=== PATIENT | male | born 1950 | race Caucasian/White ===

== ENCOUNTER 2022-04-15 12:50 | Outpatient (CLI) | payer MEDICARE, BC, SELFPAY ==
--- NOTE | 2022-04-15 13:00 | MR_ITS ---
[facility] [address] [facility] [address] Phone:?[phone] Fax:?[phone] Referring Physician Information: Antwon Leija M.D. [address] [place] [address] Phone:?[phone] Fax:?[phone] Patient:Rosetta Ramírez D.O.B:?1950 Sex:?Male Phone:?[phone] [facility] MRN:?[id number] Exam Date:?04/15/2022 ? EXAM: MRI OF THE RIGHT KNEE CLINICAL INFORMATION: The patient is a 71-year-old with right knee pain. Evaluate for medial meniscal tear. PRIOR SURGERY: None reported. COMPARISON STUDIES: There are no prior studies available for comparison. TECHNICAL INFORMATION: Imaging was performed on a high-field, 1.5 Jaki MR scanner. Axial proton-density and fat-suppressed T2 imaging of the right knee was performed in addition to coronal proton-density and coronal STIR imaging. Sagittal proton-density and sagittal fat-suppressed proton-density imaging was also performed. FINDINGS: Articular/Extraarticular collections: Effusion: Mild to moderate. Popliteal cyst: Small, seen on axial series 4 image 13 and on sagittal series 6 image 23. Loose bodies: No well-defined intra-articular loose bodies are present. Subcutaneous and extraarticular soft tissues: Within normal limits. Cortical irregularity and subcortical cystic changes can be seen involving the medial femoral condyle on coronal series 8 image 19. The findings are in keeping with the chondromalacia and chondral thinning described below. No other bony abnormalities about the knee are present. No evidence for fracture, contusion, or stress injury can be seen. Osseous structures: No evidence for marrow edema or cortical injury. No evidence for fracture or stress injury. No evidence for destructive bony lesion. Ligamentous structures: ACL: Intact and normal in appearance. PCL: Intact and normal in appearance. MCL: Intact and normal in appearance. LCL: Intact and normal in appearance. Posterolateral corner: Intact and normal in appearance. Posteromedial corner: No posteromedial corner soft tissue injury. Semimembranosus and pes anserine tendons demonstrate no tendinopathy or associated bursitis. Extensor mechanism/Patellar retinacular structures: Patellar tendon: Intact, without tendinopathy. Quadriceps tendon: Intact, without tendinopathy. Retinacula: The medial and lateral retinacula are intact. The medial patellofemoral ligament is intact. Medial compartment: Medial meniscus: The medial meniscus is abnormal in appearance. There is broad- based, complex tearing and fraying of the middle and posterior portions of the medial meniscus with a prominent horizontal component of tearing involving the posterior horn on sagittal series 6 image 22. The medial meniscal tearing measures approximately 28 mm in anteroposterior dimension and 25 mm in mediolateral dimension. There is extension of the tearing to the meniscal attachment. No definite evidence for well-defined parameniscal cyst formation is seen. The anterior horn of the medial meniscus appears intact. Medial femoral condyle: Grade II to III chondromalacia can be seen along the articular surfaces of the medial femoral condyle. Mild underlying bony changes are seen. Medial tibial plateau: Grade II chondromalacia can be seen along the weightbearing surfaces of the medial tibial plateau. Lateral compartment: Lateral meniscus: No evidence for lateral meniscal tearing is present. No evidence for parameniscal cyst formation can be seen. Lateral femoral condyle: No chondromalacia, chondral defect, or osteochondral abnormality. Lateral tibial plateau: Grade II chondromalacia can be seen along the posterior articular surfaces of the lateral tibial plateau. No full-thickness chondral defects are seen. Patellofemoral compartment: Patella: No chondromalacia, chondral defect, or osteochondral abnormality. Trochlea: No chondromalacia, chondral defect, or osteochondral abnormality. Neurovascular: No definite neurovascular abnormalities are seen. CONCLUSION: 1. Broad-based tearing of the middle and posterior portions of the medial meniscus. No lateral meniscal tearing is seen. 2. 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 3. The cruciate and collateral ligaments appear intact. 4. No acute bony abnormalities are seen. 5. Mild to moderate knee joint effusion and small popliteal cyst. [facility] Electronically signed on 04/15/2022 4:35:00 PM by Demario Woo M.D.
== END 2022-04-15 12:51 | disposition home or self-care (01) ==
PROVIDERS: Visit Provider Orthopaedic Surgery
DX: M25.561 Pain in right knee (principal); M23.221 Derangement of posterior horn of medial meniscus due to old tear or injury, right knee; M94.261 Chondromalacia, right knee; M25.461 Effusion, right knee; M71.21 Synovial cyst of popliteal space [Baker], right knee
CPT/HCPCS: 73721

== ENCOUNTER 2022-07-03 09:08 | Day surgery (SDC) | payer MEDICARE, BC, SELFPAY ==
[2022-07-03] VITALS (23 sets, daily range): BP systolic 86–184; BP diastolic 59–96; PULSE 58–68; RESP 16; TEMP 36.6; O2SAT 93–99; BMI 31.2
[2022-07-03] MEDS: SODIUM CHLORIDE 0.9 % (FLUSH) 10 ML SYRINGE IVF (10:10)
[2022-07-03] MEDS: LACTATED RINGERS 1000 ML 1,000 ML 100 ML IV (10:10)
[2022-07-03] MEDS: CEFAZOLIN 2 GM INJ IVP (11:20)
[2022-07-03] MEDS: BUPIVACAINE 0.25% 30 ML INJECTION (11:57)
--- NOTE | 2022-07-03 12:06 | PM.ORPRC ---
Procedure Note Date of procedure: 07/03/22 Procedure: SURGEON: Antwon Leija MD EMERGENCY MANAGEMENT PROGRAM SPECIALIST: LUCY Johansen PREOPERATIVE DIAGNOSIS: Right knee medial meniscus tear POSTOPERATIVE DIAGNOSIS: Right knee medial meniscus tear NAME OF OPERATION: Right knee arthroscopic partial medial meniscectomy ANESTHESIA: Spinal ESTIMATED BLOOD LOSS: 0 mL COMPLICATIONS: None SPECIMENS: None DRAINS: None PREOPERATIVE ANTIBIOTICS: Ancef 2 gram INDICATIONS: The patient is a 72-year-old with a history of right knee medial pain. MRI scan is consistent with a medial meniscus tear. Despite appropriate nonoperative management, including activity modification, antiinflammatories, [id number] pain medication, bracing, physical therapy, and injections they continue to have pain and disability. Operative intervention was offered. The risks, benefits and expected outcomes were discussed in detail. These included but were not limited to: Infection, bleeding, injury to blood vessel or nerve, venous thromboembolism. All questions were answered to their satisfaction. PROCEDURE: Spinal anesthesia was administered. The patient was placed supine on the operating room table. The right lower extremity was prepped and draped in the usual sterile fashion. The limb was exsanguinated with the George bandage. The pneumatic tourniquet was inflated to 300 mmHg. A standard anterolateral portal was established. The arthroscope was introduced. The working portal was established anteromedially. Diagnostic arthroscopy was performed with findings as follows: The suprapatellar pouch is normal. Articular surface on the patella is normal. Articular surface on the trochlea shows a small patch of grade 3 change, distally. The medial gutter is normal. The medial compartment shows a focal area of grade 3 change on the central, weight-bearing portion of the medial femoral condyle, normal articular cartilage on the medial tibial plateau. The medial meniscus has a complex degenerative tear of the posterior horn, into the midbody. This primarily consists of vertical longitudinal tearing in the white-white zone and undersurface horizontal cleavage tearing. The notch shows the ACL to be intact. The lateral compartment shows normal articular cartilage on the lateral femoral condyle and lateral tibial plateau. The lateral meniscus is normal. The lateral gutter is normal. The posterior horn of the medial meniscus was debrided to a stable base using a combination of baskets and shaver through both portals. Unstable chondral flaps on the medial femoral condyle were debrided with the shaver through both portals, taken to a stable base. Arthroscopic instruments were removed, the portal sites were Steri-Stripped closed, the knee was infiltrated with 30 mL of 0.25% Marcaine without epinephrine. A dry dressing was applied, the tourniquet was released. Sponge and needle counts were correct x 2. The patient tolerated the procedure well. There were no apparent complications. They were carefully transferred to the hospital bed and taken to the postanesthesia care unit in satisfactory condition. PLAN: The patient will be discharged to home. They may weightbear as tolerates. Range of motion will be unrestricted. They will follow up in the office next week for a wound check.
--- NOTE | 2022-07-03 12:07 | W.ANESCHARGE ---
Anesthesia Charges Start Date/Time Anesthesia Start Date: 07/03/22 Anesthesia Start Time: 11:13 Stop Date/Time Anesthesia Stop Date: 07/03/22 Anesthesia Stop Time: 12:08 Summary Emergency: No Extremes of Age: Over 72-CPT [address]
== END 2022-07-03 14:20 | disposition home or self-care (01) ==
LOC: OR 09:10
PROVIDERS: Visit Provider Orthopaedic Surgery
PROC: (CPT 29870; principal; 2022-07-03 10:30)
DX: M23.221 Derangement of posterior horn of medial meniscus due to old tear or injury, right knee (principal)
CPT/HCPCS: 29881; 01400; 82962; 99100; J0690; J2400; J2704; J3010; J3490; J7120

== ENCOUNTER 2023-07-01 18:39 | Outpatient (CLI) | payer MEDICARE, BC, SELFPAY ==
--- NOTE | 2023-07-01 19:00 | MR_ITS ---
[address] [address] Phone:?[phone] Fax:?[phone] Referring Physician Information: Antwon Leija M.D. [address] [facility] [address] Phone:?[phone] Fax:?[phone] Patient:Rosetta Ramírez D.O.B:?1950 Sex:?Male Phone:? [facility] MRN:?[id number] Exam Date:?07/01/2023 EXAM: MRI of the LEFT SHOULDER, without contrast CLINICAL: Left shoulder pain. Evaluate for rotator cuff tear. COMPARISONS: None available. TECHNICAL: Multiplanar multisequence MRI of the left shoulder was obtained. SEDATION: None. CONTRAST: None. FINDINGS: Evaluation of the obtained sequences is somewhat limited by artifact. Rotator cuff: Supraspinatus/Infraspinatus: There is high-grade near full-thickness to full- thickness tearing involving the insertional fibers of the distal supraspinatus tendon seen on coronal series 4 images 10-12 superimposed upon moderate tendinosis. No significant retraction of torn tendon fibers. There is mild tendinosis and mild partial interstitial tearing of the infraspinatus tendon. No significant fatty atrophy of the muscle bellies. Teres minor: No tendinosis, tear or atrophy. Subscapularis: Minimal partial interstitial insertional tearing of the distal tendon. No significant fatty atrophy of the muscle belly. Bursae: Subacromial-subdeltoid: Minimal bursal edema. Subcoracoid: No significant bursal fluid. Coracoacromial arch: Acromion morphology: Type II. No os acromiale. Acromiohumeral space: Within normal limits. Coracohumeral space: Within normal limits. Biceps tendon, long head: Evaluation of the tendon is relatively limited by artifact. Suspect mild to moderate tendinosis of the intra-articular tendon without evidence of tendon disruption or significant displacement as visualized. Glenohumeral joint: Physiologic volume of joint fluid. Articular cartilage: No significant chondral loss. Capsule: No convincing evidence of capsular thickening or injury. Labrum: No discrete labral tear identified on this nonarthrogram exam. No perilabral cyst identified. Bones: No suspicious marrow signal alteration, fracture or dislocation. Acromioclavicular joint: Advanced changes of arthrosis with inferior hypertrophic change mildly encroaching upon the underlying supraspinatus. No AC joint widening. IMPRESSION: 1. High-grade near full-thickness to full-thickness tearing involving the insertional fibers of the distal supraspinatus tendon superimposed upon moderate tendinosis. No significant tendon retraction at this time. 2. Mild tendinosis/partial interstitial tearing of the distal infraspinatus tendon. Minimal partial interstitial insertional tearing of the distal subscapularis tendon. 3. 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 4. Suspect mild to moderate tendinosis of the intra-articular long head biceps tendon. JCZ Electronically signed on 07/02/2023 10:20:00 AM by Alfonso Martinez D.O.
== END 2023-07-01 18:40 | disposition home or self-care (01) ==
LOC: MRI 18:40
PROVIDERS: Visit Provider Orthopaedic Surgery
DX: M25.512 Pain in left shoulder (principal); M75.102 Unspecified rotator cuff tear or rupture of left shoulder, not specified as traumatic; M19.012 Primary osteoarthritis, left shoulder
CPT/HCPCS: 73221

== ENCOUNTER 2023-12-10 06:50 | Day surgery (SDC) | payer MEDICARE, BC, SELFPAY ==
[2023-12-10] VITALS (15 sets, daily range): BP systolic 127–164; BP diastolic 73–93; PULSE 58–80; RESP 12–18; TEMP 35.8–36.4; O2SAT 92–98; BMI 31.7
--- OUTSIDE RECORDS SUMMARY | 2023-12-10 06:52 | XMS_ITS | Encounter Summary ---
Author Name Department of Vetera Affairs Organization Department of Veter[facility] Affairs Address [address] [place] [address] Support Name Relationship Address Phone KIRSTEN HOLLY Next of Kin [address] [place] [phone] KIRSTEN HOLLY Emergency Contact [address] [place] [phone] Insurance Providers: All historical and current Section Date Range: From patient's date of to the date document was created. This section includes the names of all active insurance providers for the patient. Insurance Provider Type of Coverage Plan Name Start of Policy Coverage End of Policy Coverage Group Number Member ID Insurance Provider's Telephone Number Policy Ruiz's Name Patient's Relationship to Policy Ruiz [facility] (WNR) MEDICARE ADVANTAGE [facility] (WNR) Apr 26, 2017 [id number] [phone] JUAN ANTONIO HOLLY PATIENT Selected Encounter This section includes the information on record at [place] for the Encounter. Date/Time Encounter Type Encounter Description Reason Provider Source Jul 28, 2023 09:15 AM OFFICE O/P EST LOW 20 MIN PRIMARY CARE/MEDICINE ICD-10-CM E11.9 Type 2 diabetes mellitus without complications WILLIAM العلي Maya Encounter Template Text not used by [place] Assessments - Encounter Diagnoses This section includes the primary and secondary diagnoses documented for the Encounter. Date/Time Primary/Secondary Diagnosis Diagnosis Name Provider Source Jul 30, 2023 10:15 AM PRIMARY Type 2 diabetes mellitus without complications WILLIAM العلي [facility] Jul 30, 2023 10:15 AM SECONDARY Encounter for immunization GABE MARTINEZ [facility] Jul 30, 2023 10:15 AM SECONDARY Hyperlipidemia, unspecified WILLIAM العلي [facility] Jul 30, 2023 10:15 AM SECONDARY Male erectile dysfunction, unspecified WILLIAM العلي [facility] Plan of Treatment: Future Appointments (+ 6 months) and Future Tests (+/- 45 days) The Plan of Treatment section includes future care activities for the patient [facility] [facility]. This section includes future appointments and future orders which are active, pending or scheduled. Future Appointments This section includes appointments that were scheduled to occur 6 months from the date of the Encounter, up to a maximum of 20 appointments. The data comes from all [place] treatment facilities. Appointment Date/Time Appointment Type Appointme nt Facility Name December 01, 2023 10:20 AM AMBULATORY - SURGERY [facility] Lab Results: +/- 30 days of the encounter This section includes the Chemistry and Hematology Lab Results on record with [place] for the patient. Radiology Reports and Pathology Reports are provided separately, in subsequent sections. Lab Results This section contains the Chemistry/Hematology Results that were resulted 30 days before or 30 daysafter the date of the Encounter. Date/Time Source Result Type Result - Unit Interpretation Reference Range Comment Jul 28, 2023 08:13 AM [facility] HEMOGLOBIN A1C Specimen Type: BLOOD Comment: Values obtained from A1C measurements can vary. For typical A1C assays, a reported value of 7.0 could actually be between 6.7 and 7.3 if measured by a reference method. A reported value of 9.0 could actually be between 8.7 and 9.3. Ref: http://www.ngs p.org/CAPdata. asp Ordering Provider: WILLIAM العلي Report Released Date/Time: Jul 29, 2022 09:02 AM Reporting Lab: [facility] [id number] Performing Lab: [facility] [id number] HEMOGLOBIN A1C 6.6 H 4.0-6.0 Jul 28, 2023 08:13 AM [facility] LIPID PANEL,NON-FASTING Specimen Type: PLASMA Comment: Elevated triglyceride result from a non-fasting specimen should be interpreted with caution. A fasting panel is recommended for accurate triglycerides when trigs are >200 from a non-fasting specimen. Ordering Provider: WILLIAM العلي Report Released Date/Time: Jul 29, 2022 09:02 AM Reporting Lab: [facility] [id number] Performing Lab: [facility] [id number] CHOLESTEROL 150 <199 .HDL 45 >40 LDL CALCULATION 57 <99 VLDL CALCULATION 48 H <29 NON HDL CHOLESTEROL 105 <129 TRIG(NON FASTING) 242 H <149 Jul 28, 2023 08:13 AM [facility] COMPREHENSIVE METABOLIC PANEL+MG Specimen Type: PLASMA Comment: Elevated triglyceride result from a non-fasting specimen should be interpreted with caution. A fasting panel is recommended for accurate triglycerides when trigs are >200 from a non-fasting specimen. Ordering Provider: WILLIAM العلي Report Released Date/Time: Jul 29, 2022 09:02 AM Reporting Lab: [facility] [id number] Performing Lab: [facility] [id number] CREATININE 1.1 0.7-1.2 UREA NITROGEN 13 8-26 GLUCOSE 148 H 70-100 SODIUM 143 136-145 POTASSIUM 4.3 3.5-5.1 CHLORIDE 108 H 98-107 CO2 24 22-29 CALCIUM 9.5 8.4-10.2 PROTEIN,TOTAL 7.2 6.0-8.3 ALBUMIN 4.2 3.5-5.2 BILIRUBIN, TOTAL 0.8 0.2-1.2 MAGNESIUM 2.2 1.6-2.6 ANION GAP 11 5-15 ALKALINE PHOSPHATASE 66 40-150 ALT/SGPT 38 <55 AST/SGOT 29 <34 .CREAT EGFR(CKD-EPI) 72 >60 Vital Signs: All taken on the encounter date This section contains inpatient and outpatient Vital Signs collected on the date of the Encounter. Date/Time Temperature Pulse Blood Pressure Respiratory Rate SP02 Pain Height Weight Body Mass Index Source Jul 28, 2023 08:40 AM 97.6 F 67 /min 146/85 mm[Hg] 18 /min 100 % 202.7 lb 31 [place] [facility] Immunizations: All administered on the encounter date This section contains immunizations associated to the Encounter. Immunization Series Date Issued Reaction Comments INFLUENZA, HIGH-DOSE, QUADRIVALENT Jul 28, 2023 Social History: Smoking Status (Most current) and Tobacco Use (All prior to encounter date) This section includes the most current, and the historical, smoking and tobacco- related health factors from the [place] facility where the Encounter took place. Current Smoking Status This section includes the most current smoking, or tobacco-related health factor, from the [place] facility where the Encounter took place. Date/Time Current Smoking Status Comment Anoop vernon Jul 28, 2023 09:15 AM [place]-TOBACCO NEVER USED [facility] Tobacco Use History This section includes a history of the smoking, or tobacco-related health factors, that were collected on or before the date of the Encounter. The data comes from the [place] facility where the Encounter took place. Date/Time Smoking Status/Tobacco Use Comment Franchesca acility Jul 29, 2022 08:45 AM VA-TOBACCO NEVER USED [facility] Apr 30, 2021 08:45 AM VA-TOBACCO NEVER USED [facility] Apr 24, 2020 08:30 AM VA-TOBACCO NEVER USED [facility] Jul 05, 2019 09:30 AM VA-TOBACCO NEVER USED [facility] Jan 06, 2018 10:05 AM LIFETIME NON-TOBACCO USER [facility] Jan 13, 2017 09:04 AM LIFETIME NON-TOBACCO USER [facility] Jan 04, 2016 07:52 AM LIFETIME NON-TOBACCO USER [facility] Feb 23, 2015 08:47 AM LIFETIME NON-TOBACCO USER [facility] Advance Directives: All historical and current Section Date Range: From patient's date of to the date document was created. This section includes ALL of a patient's completed or amended [place] Advance and Rescinded Directives. The entries below indicate that a directive exists for the patient, but an actual copy is not included with this document. The data comes from all [facility]. Date Advance Directives Provider Source May 11, 2021 ADVANCE DIRECTIVE KAILA BLANTON [facility] May 11, 2021 ADVANCE DIRECTIVE DISCUSSION KAILA BLANTON [facility] Encounter Notes: All associated encounter notes This section contains the clinical notes associated to the Encounter. Date/Time Encounter Note(s) Provider Source Jul 30, 2023 09:53 AM INTERNAL MEDICINE NOTE: LOCAL TITLE: MEDICINE CLINIC NOTE STANDARD TITLE: INTERNAL MEDICINE NOTE DATE OF NOTE: JUL 30, 2023@09:53 ENTRY DATE: JUL 30, 2023@09:54:01 AUTHOR: WILLIAM العلي COSIGNER: URGENCY: STATUS: COMPLETED Nurse's notes reviewed from today. DALTON HOLLY is a 73 year old MALE with the following Chief complaint: Follow up for DM HPI/ROS: Pt here for f/o of DM, hyperlipidemia, and pt also complaining of ED. Pt reports that he is doing ok in his usual state of health. Notes that he gives blood about every two months and last time he shantel blood he just barely made the cutoff, having his HgB being greater than 13. Also, notes one episode of dizziness after being told to take four deep breaths in a row. Denies dizziness with normal activities. ROS negative for chest pain, palpitaations, SOB, weakness. Active problems - Computerized Problem List is the source for the followin. Diabetes mellitus 2. Hyperlipidemia 3. Obstructive sleep apnea of adult 4. Peripheral neuropathy due to type 2 diabetes mellitus Allergies: Patient has answered NKA Active and Recently Outpatient Medications (including Supplies): Active Outpatient Medications Status 1) ATORVASTATIN CALCIUM 40MG TAB TAKE ONE TABLET BY ACTIVE (S) MOUTH AT BEDTIME 2) METFORMIN HCL 1000MG TAB TAKE ONE-HALF TABLET BY ACTIVE (S) MOUTH TWO TIMES A DAY 3) SILDENAFIL CITRATE 25MG TAB TAKE ONE TABLET BY MOUTH ACTIVE NEEDED FOR ERECTILE DYSFUNCTION Active Non-VA Medications Status 1) Non-VA ASPIRIN 81MG EC TAB 81MG MOUTH EVERY DAY ACTIVE 2) Non-VA CALCIUM CARBONATE/MAGNESIUM CARBONATE TAB ACTIVE MOUTH EVERY DAY 3) Non-VA CHOLECALCIFEROL TAB MOUTH EVERY DAY ACTIVE 4) Non-VA CYANOCOBALAMIN 100MCG TAB 1500MCG MOUTH EVERY ACTIVE DAY 5) Non-VA MARINE LIPID (FISH OIL) CAP,ORAL 1200MG MOUTH ACTIVE EVERY DAY 6) Non-VA ZINC (FROM SULFATE) CAP,ORAL 10MG MOUTH EVERY ACTIVE DAY 12 Total Medications MEDICATION RECONCILIATION: At this visit I have reviewed the medication list, and discussed relevant medications with the patient/surrogate. An updated patient medication list was given to the participant(s). (X ) No Change ( ) Change/New: I have noted this on the patient's copy of the medication list. Family/Social History: (X) Not applicable to today's visit. EXAM: VS: Temp: 97.6 F [36.4 C] (07/28/2023 08:40) BP: 146/85 (07/28/2023 08:40) Pulse:67 (07/28/2023 08:40) Resp: 18 (07/28/2023 08:40) Pain: 4 (07/29/2022 08:14) Weight: WEIGHTS IN LAST 6 MONTHS: 202.7 (JUL 28, 2023@08:40:05) General Appearance: NAD Mental Status: Alert and oriented x3, normal mood and affect Chest/T Spine: CTA b/l Cardiac: RRR nl s1 s2 Data/Labs: A1C: Collection DT Specimen Test Name Result Units Ref Range 07/28/2023 08:13 BLOOD !! HEMOGLOBIN A1C 6.6 H % 4.0 - 6.0 Lipids: CHOLESTEROL 150 (07/28/23) HDL 45 (07/28/23) LDL CALCULATION 57 (07/28/23) SMA-7: SODIUM 143 (07/28/23) POTASSIUM 4.3 (07/28/23) CHLORIDE 108 H (07/28/23) CO2 24 (07/28/23) UREA NITROGEN 13 (07/28/23) CREATININE 1.1 (07/28/23) GLUCOSE 148 H (07/28/23) LFTs: SGOT 29 (07/28/23) SGPT 38 (07/28/23) Patient was informed of all the above labs and tests during this visit. Assessment and Plan: 1. DM- A1C is 6.6%, at goal continue metformin 2. Hyperlipidemia LDL is at goal continue atorvastatin 3. ED- will try sildenafil prn 4. RTC in one year with labs 25___ minutes were spent with the patient during this visit on counseling, direct coordination of care, review of the medical record including pertinent labs/imaging studies, and chart documentation. ( X) Patient/Caregiver indicates readiness to learn, verbalizes understanding, agreement and satisfaction with the treatment plan. Patient/Caregiver denies further questions. Education on NEW Medication: I have reviewed the medication list for possible drug:drug interactions or contraindications prior to ordering NEW medications during this visit. ( )Patient instructed. I noted new medication on patient's copy of the medication list. Patient sent to Pharmacist for education on new medication. (X )Patient ( )Family Member ( )Caregiver indicated readiness to learn and has been instructed on action, dose, frequency and side effects of the new medication and I noted new medication on participant's copy of the medication list. ( ) Verbalizes understanding of instructions. ( ) Needs additional reinforcement of instructions(sent to Pharmacist). ( )Patient unable to participate in learning/instruction. HTN Assess for Elevated BP>=140/90: The patient declines the recommended changes in medications to improve blood pressure control. Comment: pt counseled on lifestyle modifications /es/ WILLIAM العلي MD STAFF PHYSICIAN Signed: 07/30/2023 10:15 WILLIAM العلي [facility] Jul 28, 2023 08:43 AM INTERNAL MEDICINE OUTPATIENT NOTE: LOCAL TITLE: MEDICINE CLINIC NURSING NOTE STANDARD TITLE: INTERNAL MEDICINE OUTPATIENT NOTE DATE OF NOTE: JUL 28, 2023@08:43 ENTRY DATE: JUL 28, 2023@08:43:06 AUTHOR: AUDELIA MARTINEZ COSIGNER: URGENCY: STATUS: COMPLETED TYPE OF VISIT: Appointment Check In Type of appointment: In-person appointment REASON FOR VISIT: annual check up, pt gets dizzy when taking deep breaths, ALLERGIES: Patient has answered NKA VITAL SIGNS: Blood Pressure: 146/85 (07/28/2023 08:40)retaken 153/95 Pulse: 67 (07/28/2023 08:40) Respiration: 18 (07/28/2023 08:40) Temperature: 97.6 F [36.4 C] (07/28/2023 08:40) Weight: 202.7 lb [91.94 kg] (07/28/2023 08:40) Height: 68 in [172.7 cm] (07/29/2022 08:14) BMI: 30.9 O2 Sat: 100% (07/28/2023 08:40) Pain: 4 (07/29/2022 08:14) PAIN SCREEN: Patient is not having significant pain that they wish to discuss with their provider today. MEDICATION Over the Counter/Herbal Medications: The patient states that they take some outside medications and/or herbals. Suicide Screen: C-SSRS Screening Tillman-Suicide Severity Rating Scale (C-SSRS Screener) 1. Over the past month, have you wished you were or wished you could go to sleep and not wake up? No 2. Over the past month, have you had any actual thoughts of killing yourself? No 3. Over the past month, have you been thinking about how you might do this? Response not required due to responses to other questions. 4. Over the past month, have you had these thoughts and had some intention of acting on them? Response not required due to responses to other questions. 5. Over the past month, have you started to work out or worked out the details of how to kill yourself? Response not required due to responses to other questions. 6. If yes, at any time in the past month did you intend to carry out this plan? Response not required due to responses to other questions. 7. In your lifetime, have you ever done anything, started to do anything, or prepared to do anything to end your life (for example, collected pills, obtained a gun, gave away valuables, went to the roof but didn't jump)? No 8. If YES, was this within the past 3 months? Response not required due to responses to other questions. Depression Screening: Perform PHQ-2 A PHQ-2 screen was performed. The score was 0 which is a negative screen for depression. Over the past two weeks, how often have you been bothered by the following problems? 1. Little interest or pleasure in doing things Not at all 2. Feeling down, depressed, or hopeless Not at all Alcohol Use Screen (AUDIT-C): Alcohol Screen: SCREEN FOR ALCOHOL (AUDIT-C) An alcohol screening test (AUDIT-C) was negative (score=3). 1. How often did you have a drink containing alcohol in the past year? Two to three times per week 2. How many drinks containing alcohol did you have on a typical day when you were drinking in the past year? One or two drinks 3. How often did you have six or more drinks on one occasion in the past year? Never Nursing Annual Screening: Fall History Screen During the past 12 months, have you had any falls? Patient does not report any falls in the past 12 months. MEDICATIONS: Patient does not have an active prescription for one of the following medications: Antihypertensives, Antidepressants, Antipsychotics, Diuretics, or Opioid Analgesics (Contolled Substance medications used for pain). FALL RISK ADVICE: Fall Risk Advice provided. Handout entitled Fall Prevention At Home reviewed and given to patient and/or significant other. Script Talk Screen Are you able to read your prescription bottles with your glasses, magnifiers or other aids? Yes or patient not taking any prescriptions. Skin Screen Patient reports any current pressure ulcers, a history of pressure ulcers, or a wound from a medical coding manager or Patient is bed-confined or a wheelchair-user or Patient requires assistance to transfer/change position No, Skin Screen is Negative Home Abuse/Violence Screen Is your home free of abuse and violence? Yes MOVE! Program Screen Body Mass Index (BMI)= 30.9 [place]: Collection DT Specimen Test Name Result Units Ref Range 07/28/2023 08:13 BLOOD !! HEMOGLOBIN A1C 6.6 H % 4.0 - 6.0 !! Indicates COMMENTS AVAILABLE...Refer to Interim Lab Report. [place] Hgb A1C: No data available [place] Hgb A1C: No data available Point of Care Hgb A1C: POC HGB A1C____ Outpatient Nutrition Screen Body Mass Index (BMI)= 30.9 [place]: Collection DT Specimen Test Name Result Units Ref Range 07/28/2023 08:13 BLOOD !! HEMOGLOBIN A1C 6.6 H % 4.0 - 6.0 !! Indicates COMMENTS AVAILABLE...Refer to Interim Lab Report. [place] Hgb A1C: No data available [place] Hgb A1C: No data available Point of Care Hgb A1C: POC HGB A1C____ Is patient's BMI less than 18.5? No Does patient have swallowing, coughing, or chewing problems affecting oral intake? No Has patient experienced unplanned weight loss or gain greater than 10 pounds over the last 2 months? No Is patient's Hgb A1C (Glycosylated Hemoglobin) greater than 9.5? No Is patient receiving Total Parenteral Nutrition (TPN) or Tube Feedings? No Patient Health Education Screen BARRIERS/SPECIAL NEEDS: No barriers identified PREFERRED STYLE OF LEARNING: No preference stated Client Assistive Service (IRA) Screen Does the patient require assistance with outpatient visit? No Tobacco Use Screening: The patient has never used tobacco. COVID-19 Immunization: Refused Pfizer Monovalent COVID-19 vaccine Immunization: COVID-19 (PFIZER), MRNA, LNP-S, PF, JOSE ANGEL-SUCROSE, 30 MCG/0.3 ML (AGES 12+ YEARS) Refusal Reason: PATIENT DECISION Patient refuses all immunization(s) in the COVID-19 group Date Documented: 07/28/23 08:47 Influenza Immunization: The patient was given the influenza VIS which lists the benefits and side effects of the vaccine and which reviews the risks of not receiving the flu vaccine. The VIS was reviewed with the patient and they were given an opportunity to ask questions. The patient was provided education on how to decrease the risk of influenza infection including social distancing and use of good hand hygiene. The patient denied any prior severe reaction to the flu vaccine or its components. The patient gave verbal consent to receive the vaccine. Influenza, High Dose, Quadrivalent (Fluzone - syringe) Administered: INFLUENZA, HIGH-DOSE, QUADRIVALENT Date Administered: Jul 28, 2023 08:49 Nail Maker: SANOFI PASTEUR Lot: [id number] Exp Date: Jan 24, 2024 [facility]: [phone] Admin Route/Site: INTRAMUSCULAR/LEFT DELTOID Dosage: 0.7mL Vaccine Information Statement(s): INFLUENZA(FLU) VACC(INACTIVATED OR RECOMBINANT)VIS Mar 01, 2021 (SWEDISH) Order By: William العلي Administered By: Audelia Martinez /rod/ AUDELIA MARTINEZ LPN LICENSED PRACTICAL NURSE Signed: 07/28/2023 08:55 AUDELIA MARTINEZ [facility]
--- OUTSIDE RECORDS SUMMARY | 2023-12-10 06:52 | XMS_ITS | Encounter Summary ---
Author Name Department of Vetera Affairs Organization Department of Vetera Affairs Address [address] [place] [address] Support Name Relationship Address Phone KIRSTEN HOLLY Next of Kin [address] [place] [phone] KIRSTEN HOLLY Emergency Contact [address] [place] [phone] Insurance Providers: All historical [...] Ruiz's Name Patient's Relationship to Policy Ruiz [facility] (WNR) MEDICARE ADVANTAGE [facility] (WNR) Apr 26, 2017 [id number] JUAN ANTONIO HOLLY PATIENT Selected Encounter This section includes the information on record at [place] for the Encounter. Date/Time Encounter Type Encounter Description Reason Pro vider Source November 26, 2023 12:00 AM Outpatient Encounter ADMIN PAT ACTIVTIES (DANIELCT) IHE Encounter Template Text not used by [place] Plan of Treatment: Future Appointments (+ 6 months) and Future Tests (+/- 45 days) The Plan of Treatment section includes future care activities for the patient from all [place] treatmentfacilities. This section includes future appointments and future orders which are active, pending or scheduled. Future Appointments This section includes appointments that were scheduled to occur 6 months from the date of the Encounter, up to a maximum of 20 appointments. The data comes from all [place] treatment facilities. Appointment Date/Time Appointment Type Appointme nt Facility Name December 01, 2023 10:20 AM AMBULATORY - SURGERY [facility] Social History: Smoking Status (Most current) and Tobacco Use (All prior to encounter date) This section includes the most current, and the historical, smoking and tobacco- related health factors from the [place] facility where the Encounter took place. Current Smoking Status This section includes the most current smoking, or tobacco-related health factor, from the [place] facility where the Encounter took place. Date/Time Current Smoking Status Comment Anoop hetaly Jul 28, 2023 09:15 AM VA-TOBACCO NEVER USED [facility] Tobacco Use History This section includes a history of the smoking, or tobacco-related health factors, that were collected on or before the date of the Encounter. The data comes from the [place] facility where the Encounter took place. Date/Time Smoking Status/Tobacco Use Comment Franchesca jailene Jul 29, 2022 08:45 AM [place]-TOBACCO NEVER USED [facility] Apr 30, 2021 08:45 AM VA-TOBACCO NEVER USED [facility] Apr 24, 2020 08:30 AM VA-TOBACCO NEVER USED [facility] Jul 05, 2019 09:30 AM VA-TOBACCO NEVER USED [facility] Jan 06, 2018 10:05 AM LIFETIME NON-TOBACCO USER [facility] Jan 13, 2017 09:04 AM LIFETIME NON-TOBACCO USER [facility] Jan 04, 2016 07:52 AM LIFETIME NON-TOBACCO USER [facility] Feb 23, 2015 08:47 AM LIFETIME NON-TOBACCO USER [facility] Advance Directives: All historical and current Section Date Range: From patient's date of to the date document was created. This section includes ALL of a patient's completed or amended [place] Advance and Rescinded Directives. The entries below indicate that a directive exists for the patient, but an actual copy is not included with this document. The data comes from all [facility]. Date Advance Directives Provider Source May 11, 2021 ADVANCE DIRECTIVE [facility] May 11, 2021 ADVANCE DIRECTIVE DISCUSSION KAILA BLANTON [facility] Encounter Notes: All associated encounter notes This section contains the clinical notes associated to the Encounter. Date/Time Encounter Note(s) Provider Source November 26, 2023 12:00 AM NONVA NOTE: LOCAL TITLE: HOSPITALIZATION PRIVATE NONVA NOTE STANDARD TITLE: NONVA NOTE DATE OF NOTE: NOVEMBER 26, 2023 ENTRY DATE: NOVEMBER 27, 2023@11:40:59 AUTHOR: SALTY LIM EXP COSIGNER: URGENCY: STATUS: COMPLETED [facility] - Scanned Document This note contains attached HOSPITALIZATION PRIVATE scanned document(s) received from an outside facility. Open [facility] Display to review the document(s). /es/ SALTY LIM Division Officer Weapons Department - HIT Signed: 11/27/2023 11:41 SALTY LIM [facility]
--- OUTSIDE RECORDS SUMMARY | 2023-12-10 06:52 | XMS_ITS | Encounter Summary ---
Author Name [facility] Organization [facility] Address [address] [place] [address] Support Name Relationship Address Phone KIRSTEN HOLLY Next of Kin [address] [place] [phone] KIRSTEN HOLLY Emergency Contact [address] [place] [place] [phone] Insurance Providers: [...] Ruiz's Name Patient's Relationship to Policy Ruiz [facility] (WNR) MEDICARE ADVANTAGE [facility] (WNR) Apr 26, 2017 [id number] [phone] JUAN ANTONIO HOLLY PATIENT Selected Encounter This section includes the information on record at [place] for the Encounter. Date/Time Encounter Type Encounter Description Reason Provider Source Jul 28, 2023 10:30 AM IMG RTA DETC/MNTR DS PHY/QHP OPHTHALMOLOGY ICD-10-CM Z01.01 Encounter for exam of eyes and vision w abnormal findings DEJA SEO Encounter Template Text not used by [place] Assessments - Encounter Diagnoses This section includes the primary and secondary diagnoses documented for the Encounter. Date/Time Primary/Secondary Diagnosis Diagnosis Name Provider Source Jul 28, 2023 10:58 AM PRIMARY Encounter for exam of eyes and vision w abnormal findings DEJA SEO [facility] Plan of Treatment: Future Appointments (+ 6 months) and Future Tests (+/- 45 days) The Plan of Treatment section includes future care activities for the patient from [facility]. This section includes future appointments and future orders which are active, pending or scheduled. Future Appointments This section includes appointments that were scheduled to occur 6 months from the date of the Encounter, up to a maximum of 20 appointments. The data comes from all [place] treatment facilities. Appointment Date/Time Appointment Type Appointme nt Facility Name December 01, 2023 10:20 AM AMBULATORY - SURGERY [facility] Lab Results: +/- 30 days of the encounter This section includes the Chemistry and Hematology Lab Results on record with [place] for the patient. Radiology Reports and Pathology Reports are provided separately, in subsequent sections. Lab Results This section contains the Chemistry/Hematology Results that were resulted 30 days before or 30 daysafter the date of the Encounter. Date/Time Source Result Type Result - Unit Interpretation Reference Range Comment Jul 28, 2023 08:13 AM [facility] HEMOGLOBIN A1C Specimen Type: BLOOD Comment: Values obtained from A1C measurements can vary. For typical A1C assays, a reported value of 7.0 could actually be between 6.7 and 7.3 if measured by a reference method. A reported value of 9.0 could actually be between 8.7 and 9.3. Ref: http://www.ngs p.org/CAPdata. asp Ordering Provider: ANDI العلي Report Released Date/Time: Jul 29, 2022 09:02 AM Reporting Lab: [facility] [id number] Performing Lab: [facility] [id number] HEMOGLOBIN A1C 6.6 H 4.0-6.0 Jul 28, 2023 08:13 AM [facility] LIPID PANEL,NON-FASTING Specimen Type: PLASMA Comment: Elevated triglyceride result from a non-fasting specimen should be interpreted with caution. A fasting panel is recommended for accurate triglycerides when trigs are >200 from a non-fasting specimen. Ordering Provider: ANDI العلي Report Released Date/Time: Jul 29, 2022 09:02 AM Reporting Lab: [facility] [id number] Performing Lab: [facility] [id number] CHOLESTEROL 150 <199 .HDL 45 >40 LDL CALCULATION 57 <99 VLDL CALCULATION 48 H <29 NON HDL CHOLESTEROL 105 <129 TRIG(NON FASTING) 242 H <149 Jul 28, 2023 08:13 AM [facility] COMPREHENSIVE METABOLIC PANEL+MG Specimen Type: PLASMA Comment: Elevated triglyceride result from a non-fasting specimen should be interpreted with caution. A fasting panel is recommended for accurate triglycerides when trigs are >200 from a non-fasting specimen. Ordering Provider: ANDI العلي Report Released Date/Time: Jul 29, 2022 09:02 AM Reporting Lab: [facility] [id number] Performing Lab: [facility] [id number] CREATININE 1.1 0.7-1.2 UREA NITROGEN 13 8-26 [...] 18 /min 100 % 202.7 lb 31 [facility] Social History: Smoking Status (Most current) and Tobacco Use (All prior to encounter date) This section includes the most current, and the historical, smoking and tobacco- related health factors from the [place] facility where the Encounter took place. Current Smoking Status This section includes the most current smoking, or tobacco-related health factor, from the [place] facility where the Encounter took place. Date/Time Current Smoking Status Comment Anoop vernon Jul 28, 2023 09:15 AM [place]-TOBACCO NEVER USED [facility] Tobacco Use History This section includes a history of the smoking, or tobacco-related health factors, that were collected on or before the date of the Encounter. The data comes from the [place] facility where the Encounter took place. Date/Time Smoking Status/Tobacco Use Comment Franchesca dent Jul 29, 2022 08:45 AM VA-TOBACCO NEVER USED [facility] Apr 30, 2021 08:45 AM VA-TOBACCO NEVER USED [facility] Apr 24, 2020 08:30 AM VA-TOBACCO NEVER USED [facility] Jul 05, 2019 09:30 AM VA-TOBACCO NEVER USED [facility] Jan 06, 2018 10:05 AM LIFETIME NON-TOBACCO USER [facility] Jan 13, 2017 09:04 AM LIFETIME NON-TOBACCO USER [facility] Jan 04, 2016 07:52 AM LIFETIME NON-TOBACCO USER [facility] Feb 23, 2015 08:47 AM LIFETIME NON-TOBACCO USER [facility] Advance Directives: All historical and current Section Date Range: From patient's date of to the date document was created. This section includes ALL of a patient's completed or amended [place] Advance and Rescinded Directives. The entries below indicate that a directive exists for the patient, but an actual copy is not included with this document. The data comes from all [place] facilities. Date Advance Directives Provider Source May 11, 2021 ADVANCE DIRECTIVE [facility] May 11, 2021 ADVANCE DIRECTIVE DISCUSSION KAILA BLANTON [facility] Encounter Notes: All associated encounter notes This section contains the clinical notes associated to the Encounter. Date/Time Encounter Note(s) Provider Source Jul 28, 2023 10:29 AM TELEHEALTH NOTE: LOCAL TITLE: EYE TECS EXECUTIVE LEGAL SECRETARY STANDARD TITLE: TELEHEALTH NOTE DATE OF NOTE: JUL 28, 2023@10:29 ENTRY DATE: JUL 28, 2023@10:29:46 AUTHOR: DJEA SEO COSIGNER: URGENCY: STATUS: COMPLETED [facility] ([facility]) Iron Worker Note DALTON HOLLY [id number] Telehealth Consent and Patient Identification Verification: Verified patient identity with 2 separate identifiers prior to the beginning of the visit: Yes Patient was informed that their information and images will be uploaded securely to the [place] computer system and sent to be remotely interpreted by an eye provider. Recommendations/findings will be conveyed to them via phone call, video chat, and/or letter. Yes Patient verbalized understanding and agreed to participate in the [facility] telemedicine eye exam today. Yes [facility] Visit Type: Screening and Vision Assessment: Program Exclusions: - Sudden (1 week or less) decrease in vision in either eye - Sudden onset of significant pain (greater than 8 out of 10) in either eye - Sudden (1 week or less) onset of increased light sensitivity in either eye. - Sudden (1 week or less) of new floaters, flashing lights, or loss of peripheral vision - Sudden (1 week or less) onset of double vision that does not go away when one eye is covered - Recent (in last month) eye surgery or trauma No exclusions identified COMPREHENSIVE SCREEN: HISTORY: Chief Complaint: Patient presents for a diabetic TECS screening. Last A1C was 6.6 History of Present Illness: Patient feels that his vision has been stable. He denies any discomfort in the eyes. He denies any flashes of light or new floaters in his vision. Last Eye Exam: Less than 1 year ago Location of last eye exam: [facility] Type of eye exam: TECS TECS HISTORY & REVIEW OF SYSTEMS No pain, decreased vision, sudden change in flashes or floaters, or sudden onset double vision. 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 SOCIAL HISTORY: 07/29/2022 Tecs Tobacco Hx-No EYE MEDICATION(S): No Current Eye Medications REFRACTION AND VISION: scVA: OD: - OS: - Manifest Refraction (MRx): OD: plano+1.00x37 +1.75 OS: plano+0.36j430 +1.75 Final MRx VA: OD: - OS: FINAL RX Tecs Glauc Tech 07/29/2022 Tecs Refrac-Final Mrx Od [place] +0.50 x 047 +1.75 add Tecs Refrac-Final Mrx Os +0.25 sphere +1.75 add Additional MRx Information: Final MRx: OD: plano+1.00x37 +1.75 OS: plano+0.61c468 +1.75 Extraocular Movement, Confrontation Visual Ott, Amsler Grid and Color Vision: Extraocular Movement: OU: Full Confrontation Visual Field: OU: Full Rx Comments: Patient has been happy using reading glasses only PACHYMETRY: Pachymetry Past Results: No data available PACHYMETRY OD: 490 OS: 505 INTRAOCULAR PRESSURE (IOP): Method: Date/Time: Jul@10:41 Rebound Tonometer OD: 11 OS: 10 PUPILS/ANTERIOR CHAMBER (AC) Penlight or slit lamp (if available) exam unremarkable Pupils are equal, round, and reactive to light No afferent defect Pupils are dilated - Side effects of dilation medication discussed, patient stated clear understanding, and patient consented to dilation. - Patient advised not to drive if they feel they have any symptoms which could affect their ability to drive safely. - Patient advised not to engage in any activities which could put themselves or others at risk if they feel they have any symptoms which could affect their ability to perform those activities safely. - Post-mydriatic glasses discussed and dispensed to reduce light sensitivity and increase comfort in bright sunlight. - Patient instructed to report to Eye Clinic or Emergency Room IMMEDIATELY if severe eye pain, facial pain, loss of vision or cloudy vision, severe headaches, or nausea occurs. Medication: 1% Tropicamide, 0.5% Proparacaine Date/Time: Jul@10:42 Which Eye? OD How many drops? 1 ea OS How many drops? 1 ea IMAGING/TESTING: Fundus Photographs were done at this encounter Optical Coherence Tomography (OCT) was done at this encounter The patient DID have Optical Coherence Tomography done - Macula CATARACT EVALUATION/COMMUNITY CARE/VOICEMAIL/HANDOUTS: The patient does NOT desire a cataract surgery evaluation The patient is NOT willing to go to community care if applicable Per , okay to leave message regarding results and plan of care. Telephone number and address verified. Yes CONSULT ORDERS: Patient communication preferences Best Contact Number: Voicemail set up: Yes Preferred Contact Method:* Patient prefers results letter to be mailed, phone call only if necessary for questions, concerns, or abnormal exam results Appendix (abbreviations): AC (Anterior Chamber); AREDS (Age Related Eye Disease Study); ARX (Auto Refraction); BID (Two Times Daily); C:D (Cup-to-Disc); CIC (Care In The Community); METAL LEAF LAYER (Cyclophotocoagulation); CSME (Clinically Significant Macular Edema); DFE (Dilated Fundus Exam); Dorz/Timol (Dorzolamide/Timolol); DSEK (Descemet's Stripping Endothelial Keratoplasty); FAF (Fundus Autofluorescence); F/U (Follow up); GCC (Ganglion Cell Complex); Gonio (Gonioscopy); H/O (History Of); HTN (Hypertension); HVF (James Visual Field); IOL (Intraocular Lens); IOP (Intraocular Pressure); K (Keratometry); LASIK (Laser-Assisted In Situ Keratomileusis); MD (Mean Deviation when used with visual field); dB (decibels); MRx (Manifest Refraction); NeoPolyDex/Erythro (Neomycin Polymyxin B Dexamethasone/Erythromycin); NFL (Nerve Fiber Layer); NPDR (Nonproliferative Diabetic Retinopathy); OCT (Optical Coherence Tomography); OD (Right Eye); OS (Left Eye); OU (Both Eyes); PDR (Proliferative Diabetic Retinopathy); PFATs (Preservative Free Artificial Tears); RK (Radial Keratotomy); RNFL (Retinal Nerve Fiber Layer); RTC (Return To Clinic); scVA (Visual Acuity Without Correction/Glasses); VALENTINE (Sammarinese Interactive Threshold Algorithm); TID (Three Times Daily); UV (Ultraviolet); VA (Visual Acuity); WRx (Prescription glasses currently worn); WRx VA (Visual Acuity With Prescription Glasses); YAG (Yttrium Aluminum [place]) /rod/ DEJA SEO OPHTHALMOLOGY TASHI EXECUTIVE LEGAL SECRETARY Signed: 07/28/2023 10:58 DEJA SEO [facility]
--- OUTSIDE RECORDS SUMMARY | 2023-12-10 06:52 | XMS_ITS | Continuity of Care Document ---
Author Name [facility] Organization [facility] Care Team Providers Care Metals Sales Representative Name Role Phone [facility] Unavailable Unavailable Problems Combined list of problems from Department of [facility] and Veterans Affairs facilities. It does not include entries that were removed or entered in error. Problem Status Onset Date Problem Type Date of Resolution Comments Source Exposure to potentially hazardous substance ([facility] [id number]) Active 10/01/19 24 Condition Oct 01, 2023 Entered By: HILDA ROSENBERG Comment: [facility] Documentation Initiative [facility] Diabetes mellitus Active Condition [facility] Hyperlipidemia Active Condition [facility] Obstructive sleep apnea of adult Active Condition [facility] 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 [facility] Diagnosis: ICD-10-CM E11.9 Type 2 diabetes mellitus without complications Active Diagnosis [facility] Diagnosis: ICD-10-CM 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 [facility] Diagnosis: ICD-10-CM Z01.01 Encounter for exam of eyes and vision w abnormal findings Active Diagnosis [facility] Diagnosis: ICD-10-CM Z01.00 Encounter for exam of eyes and vision w/o abnormal findings Active Diagnosis [facility] Diagnosis: ICD-10-CM Z23 Encounter for immunization Active Diagnosis [facility] Medications Combined list of outpatient medications from Department of Defense and Veterans Affairs facilities.Medications provided include 1) outpatient medications from the last 15 months, and 2) patient-reported medications. Medication Details Route Status Patient Instructions Prescription Expires Prescription Number Last Dispense Date Ordering Provider Order Date Order Qty Source ASPIRIN 81MG TAB,EC TAKE ONE TABLET BY MOUTH EVERY DAY ORALLY ACTIVE ANDI العلي 2019 [facility] ATORVASTATI N [place] 40MG TAB TAKE ONE TABLET BY MOUTH AT BEDTIME ORALLY ACTIVE 07/28/2024 [id number] ANDI العلي 2023 90 [facility] ATORVASTATI N CA 40MG TAB TAKE ONE TABLET BY MOUTH AT BEDTIME ORALLY DISCONT INUED 07/30/2023 [id number] FU,ANDI Ruiz 2022 90 [facility] ATORVASTATI N CA 80MG TAB TAKE ONE-HALF TABLET BY MOUTH AT BEDTIME ORALLY DISCONT INUED (EDIT) 07/30/2023 [id number] 3 FU,ANDI Ruiz 2022 45 [facility] CALCIUM CARBONATE/M AGNESIUM CARBONATE TAB TAKE BY MOUTH EVERY DAY ORALLY ACTIVE FU,ANDI Ruiz 2019 [facility] CHOLECALCIF DEEJAY TAB TAKE BY MOUTH EVERY DAY ORALLY ACTIVE FU,ANDI Ruiz 2019 [facility] CYANOCOBALA MIN 100MCG TAB TAKE 15 TABLETS BY MOUTH EVERY DAY ORALLY ACTIVE FU,ANDI Ruiz 2019 [facility] MARINE LIPID (FISH OIL) CAP,ORAL TAKE 1200MG BY MOUTH EVERY DAY ORALLY ACTIVE FU,ANDI Ruiz 2019 [facility] METFORMIN HCL 1000MG TAB TAKE ONE-HALF TABLET BY MOUTH TWO TIMES A DAY ORALLY ACTIVE 07/28/2024 [id number] 4 FU,ANDI Ruiz 2023 90 [facility] METFORMIN HCL 1000MG TAB TAKE ONE-HALF TABLET BY MOUTH TWO TIMES A DAY ORALLY DISCONT INUED 07/30/2023 [id number] 3 FU,ANDI Ruiz 2022 90 [facility] SILDENAFIL CITRATE 25MG TAB TAKE ONE TABLET BY MOUTH NEEDED FOR ERECTILE DYSFUNCT ION ORALLY ACTIVE 07/28/2024 [id number] FU,ANDI Ruiz 2023 6 [facility] ZINC (FROM SULFATE) CAP,ORAL TAKE 10MG BY MOUTH EVERY DAY ORALLY ACTIVE FU,ANDI Ruiz 2019 [facility] Immunizations Combined list of available immunizations from the Department of Defense and Veterans Affairs facilities. Immunization Series Date Given Administered By Site Reaction Lot Number CVX Code Drug Steel Manager Status Comments Source INFLUENZA, HIGH-DOSE, QUADRIVALENT 2023 GABE DOUGLAS LEFT DELTO ID [id number] A 197 complet ed [facility] INFLUENZA VACCINE, QUADRIVALENT, ADJUVANTED 2022 COLLEEN ROUSSEAU LEFT DELTO ID [id number] 205 complet ed [facility] COVID-19 ([facility]), MRNA, LNP-S, BIVALENT BOOSTER, PF, 30 MCG/0.3 ML DOSE 1 2022 COLLEEN ROUSSEAU LEFT DELTO ID [id number] 300 complet ed [facility] COVID-19 ([facility]), MRNA, LNP-S, PF, 30 MCG/0.3 ML DOSE 3 2020 208 complet ed PFR; [id number]; 1 [facility] INFLUENZA, INJECTABLE, QUADRIVALENT, PRESERVATIVE FREE 2020 150 complet ed [facility] COVID-19 ([facility]), MRNA, LNP-S, PF, 30 MCG/0.3 ML DOSE 2 2020 208 complet ed PFR; [id number]; 1 [facility] COVID-19 ([facility]), MRNA, LNP-S, PF, 30 MCG/0.3 ML DOSE 1 2020 208 complet ed PFR; [id number]; 1 [facility] INFLUENZA, INJECTABLE, QUADRIVALENT, PRESERVATIVE FREE 2019 150 complet ed [facility] PNEUMOCOCCAL CONJUGATE PCV 13 2018 133 complet ed [facility] PNEUMOCOCCAL POLYSACCHARID E [id number] 2018 33 complet ed merck,[id number], [facility] TD (ADULT), 2 LF TETANUS TOXOID, PRESERVATIVE FREE, ADSORBED 2018 09 complet ed sanofi, [id number], 05/18/20 [facility] INFLUENZA, SEASONAL, INJECTABLE 2018 141 complet ed [facility] INFLUENZA, INJECTABLE, QUADRIVALENT, PRESERVATIVE FREE 2018 150 complet ed [facility] Administe red by: NARENDRA JHAVERI (IDQ=[id number]). Partner 4 Lot#: [id number] Mfr: [employer] hKline; Dosage: 0.5 [facility] ZOSTER RECOMBINANT 2 2018 187 complet ed [facility] INFLUENZA, SEASONAL, INJECTABLE, PRESERVATIVE FREE 2017 140 complet ed [facility] ZOSTER RECOMBINANT 1 2017 187 complet ed [facility] PNEUMOCOCCAL CONJUGATE PCV 13 2017 133 complet ed Wyeth [id number] Exp. 08/2019 [facility] INFLUENZA, HIGH DOSE SEASONAL 2017 135 complet ed [facility] INFLUENZA, HIGH DOSE SEASONAL 2016 135 complet ed [facility] INFLUENZA, SEASONAL, INJECTABLE, PRESERVATIVE FREE 2015 140 complet ed [facility] ZOSTER LIVE 2013 121 complet ed [facility] TDAP 2012 115 complet ed [facility] ZOSTER LIVE 2012 121 complet ed [facility] TDAP 2009 115 complet ed [facility] HEP A, ADULT 2008 52 complet ed [facility] HEP A, ADULT 2005 52 complet ed [facility] TD (ADULT), 5 LF TETANUS TOXOID, PRESERVATIVE FREE, ADSORBED 2005 113 complet ed [facility] TYPHOID, VICPS 2005 101 complet ed [facility] Results Combined list of recent chemistry, hematology and other laboratory results from Department of Defense and Veterans Affairs, ranging from 15 months to all on record, depending upon the facility. Order Name Results Value Reference Range Date Interpretation Specimen Comments Source HEMOGLOBI N A1C HEMOGLOBIN A1C/HEMOGLO BIN.TOTAL IN BLOOD 6.6 4.0 - 6.0 07/28 H Specimen Type: BLOOD Comment: Values obtained from A1C measurement s can vary. For typical A1C assays, a reported value of 7.0 could actually be between 6.7 and 7.3 if measured by a reference method. A reported value of 9.0 could actually be between 8.7 and 9.3. Ref: http://www. [email or web address]/[place] Pdata.asp Ordering Provider: ANDI العلي Report Released Date/Time: Jul 29, 2022 09:02 AM Reporting Lab: [facility] [address] Performing Lab: [facility] [address] [place] [facility] LIPID PANEL,NON -FASTING CHOLESTEROL [MASS/VOLUM E] IN SERUM OR PLASMA 150 <199 - 199 07/28 Specimen Type: PLASMA Comment: Elevated triglycerid e result from a non-fasting specimen should be interpreted with caution. A fasting panel is recommended for accurate triglycerid es when trigs are >200 from a non-fasting specimen. Ordering Provider: ANDI العلي Report Released Date/Time: Jul 29, 2022 09:02 AM Reporting Lab: [facility] [address] Performing Lab: [facility] [address] [place] [facility] LIPID PANEL,NON -FASTING CHOLESTEROL IN HDL [MASS/VOLUM E] IN SERUM OR PLASMA 45 40 07/28 Specimen Type: PLASMA Comment: Elevated triglycerid e result from a non-fasting specimen should be interpreted with caution. A fasting panel is recommended for accurate triglycerid es when trigs are >200 from a non-fasting specimen. Ordering Provider: ANDI العلي Report Released Date/Time: Jul 29, 2022 09:02 AM Reporting Lab: [facility] [address] Performing Lab: [facility] [address] [place] [facility] LIPID PANEL,NON -FASTING CHOLESTEROL IN LDL [MASS/VOLUM E] IN SERUM OR PLASMA BY CALCULATION 57 <99 - 99 07/28 Specimen Type: PLASMA Comment: Elevated triglycerid e result from a non-fasting specimen should be interpreted with caution. A fasting panel is recommended for accurate triglycerid es when trigs are >200 from a non-fasting specimen. Ordering Provider: ANDI العلي Report Released Date/Time: Jul 29, 2022 09:02 AM Reporting Lab: [facility] [address] Performing Lab: [facility] [address] [place] [facility] LIPID PANEL,NON -FASTING CHOLESTEROL IN VLDL [MASS/VOLUM E] IN SERUM OR PLASMA BY CALCULATION 48 <29 - 29 07/28 H Specimen Type: PLASMA Comment: Elevated triglycerid e result from a non-fasting specimen should be interpreted with caution. A fasting panel is recommended for accurate triglycerid es when trigs are >200 from a non-fasting specimen. Ordering Provider: ANDI العلي Report Released Date/Time: Jul 29, 2022 09:02 AM Reporting Lab: [facility] [address] Performing Lab: [facility] [address] [place] [facility] LIPID PANEL,NON -FASTING CHOLESTEROL NON HDL [MASS/VOLUM E] IN SERUM OR PLASMA 105 <129 - 129 07/28 Specimen Type: PLASMA Comment: Elevated triglycerid e result from a non-fasting specimen should be interpreted with caution. A fasting panel is recommended for accurate triglycerid es when trigs are >200 from a non-fasting specimen. Ordering Provider: ANDI العلي Report Released Date/Time: Jul 29, 2022 09:02 AM Reporting Lab: [facility] [address] Performing Lab: [facility] [address] [facility] LIPID PANEL,NON -FASTING TRIGLYCERID E [MASS/VOLUM E] IN SERUM OR PLASMA 242 <149 - 149 07/28 H Specimen Type: PLASMA Comment: Elevated triglycerid e result from a non-fasting specimen should be interpreted with caution. A fasting panel is recommended for accurate triglycerid es when trigs are >200 from a non-fasting specimen. Ordering Provider: ANDI العلي Report Released Date/Time: Jul 29, 2022 09:02 AM Reporting Lab: [facility] [address] Performing Lab: [facility] [address] [facility] COMPREHEN SIVE METABOLIC PANEL+MG CREATININE [MASS/VOLUM E] IN SERUM OR PLASMA 1.1 0.7 - 1.2 07/28 Specimen Type: PLASMA Comment: Elevated triglycerid e result from a non-fasting specimen should be interpreted with caution. A fasting panel is recommended for accurate triglycerid es when trigs are >200 from a non-fasting specimen. Ordering Provider: ANDI العلي Report Released Date/Time: Jul 29, 2022 09:02 AM Reporting Lab: [facility] [address] Performing Lab: [facility] [address] [place] [facility] COMPREHEN SIVE METABOLIC PANEL+MG UREA NITROGEN [MASS/VOLUM E] IN SERUM OR PLASMA 13 8 - 26 07/28 Specimen Type: PLASMA Comment: Elevated triglycerid e result from a non-fasting specimen should be interpreted with caution. A fasting panel is recommended for accurate triglycerid es when trigs are >200 from a non-fasting specimen. Ordering Provider: ANDI العلي Report Released Date/Time: Jul 29, 2022 09:02 AM Reporting Lab: [facility] [address] Performing Lab: [facility] [address] [place] [facility] COMPREHEN SIVE METABOLIC PANEL+MG GLUCOSE [MASS/VOLUM E] IN SERUM OR PLASMA 148 70 - 100 07/28 H Specimen Type: PLASMA Comment: Elevated triglycerid e result from a non-fasting specimen should be interpreted with caution. A fasting panel is recommended for accurate triglycerid es when trigs are >200 from a non-fasting specimen. Ordering Provider: ANDI العلي Report Released Date/Time: Jul 29, 2022 09:02 AM Reporting Lab: [facility] [address] Performing Lab: [facility] [address] [place] [facility] COMPREHEN SIVE METABOLIC PANEL+MG SODIUM [MOLES/VOLU ME] IN SERUM OR PLASMA 143 136 - 145 07/28 Specimen Type: PLASMA Comment: Elevated triglycerid e result from a non-fasting specimen should be interpreted with caution. A fasting panel is recommended for accurate triglycerid es when trigs are >200 from a non-fasting specimen. Ordering Provider: ANDI العلي Report Released Date/Time: Jul 29, 2022 09:02 AM Reporting Lab: [facility] [address] Performing Lab: [facility] [address] [place] [facility] COMPREHEN SIVE METABOLIC PANEL+MG POTASSIUM [MOLES/VOLU ME] IN SERUM OR PLASMA 4.3 3.5 - 5.1 07/28 Specimen Type: PLASMA Comment: Elevated triglycerid e result from a non-fasting specimen should be interpreted with caution. A fasting panel is recommended for accurate triglycerid es when trigs are >200 from a non-fasting specimen. Ordering Provider: ANDI العلي Report Released Date/Time: Jul 29, 2022 09:02 AM Reporting Lab: [facility] [address] Performing Lab: [facility] [address] [facility] COMPREHEN SIVE METABOLIC PANEL+MG CHLORIDE [MOLES/VOLU ME] IN SERUM OR PLASMA 108 98 - 107 07/28 H Specimen Type: PLASMA Comment: Elevated triglycerid e result from a non-fasting specimen should be interpreted with caution. A fasting panel is recommended for accurate triglycerid es when trigs are >200 from a non-fasting specimen. Ordering Provider: ANDI العلي Report Released Date/Time: Jul 29, 2022 09:02 AM Reporting Lab: [facility] [address] Performing Lab: [facility] [address] [facility] COMPREHEN SIVE METABOLIC PANEL+MG CARBON DIOXIDE, TOTAL [MOLES/VOLU ME] IN SERUM OR PLASMA 24 22 - 29 07/28 Specimen Type: PLASMA Comment: Elevated triglycerid e result from a non-fasting specimen should be interpreted with caution. A fasting panel is recommended for accurate triglycerid es when trigs are >200 from a non-fasting specimen. Ordering Provider: ANDI العلي Report Released Date/Time: Jul 29, 2022 09:02 AM Reporting Lab: [facility] [address] Performing Lab: [facility] [address] [facility] COMPREHEN SIVE METABOLIC PANEL+MG CALCIUM [MASS/VOLUM E] IN SERUM OR PLASMA 9.5 8.4 - 10.2 07/28 Specimen Type: PLASMA Comment: Elevated triglycerid e result from a non-fasting specimen should be interpreted with caution. A fasting panel is recommended for accurate triglycerid es when trigs are >200 from a non-fasting specimen. Ordering Provider: ANDI العلي Report Released Date/Time: Jul 29, 2022 09:02 AM Reporting Lab: [facility] [address] Performing Lab: [facility] [address] [facility] COMPREHEN SIVE METABOLIC PANEL+MG PROTEIN [MASS/VOLUM E] IN SERUM OR PLASMA 7.2 6.0 - 8.3 07/28 Specimen Type: PLASMA Comment: Elevated triglycerid e result from a non-fasting specimen should be interpreted with caution. A fasting panel is recommended for accurate triglycerid es when trigs are >200 from a non-fasting specimen. Ordering Provider: ANDI العلي Report Released Date/Time: Jul 29, 2022 09:02 AM Reporting Lab: [facility] [address] Performing Lab: [facility] [address] [place] [facility] COMPREHEN SIVE METABOLIC PANEL+MG ALBUMIN [MASS/VOLUM E] IN SERUM OR PLASMA 4.2 3.5 - 5.2 07/28 Specimen Type: PLASMA Comment: Elevated triglycerid e result from a non-fasting specimen should be interpreted with caution. A fasting panel is recommended for accurate triglycerid es when trigs are >200 from a non-fasting specimen. Ordering Provider: ANDI العلي Report Released Date/Time: Jul 29, 2022 09:02 AM Reporting Lab: [facility] [address] Performing Lab: [facility] [address] [place] [facility] COMPREH [employer] METABOLIC PANEL+MG BILIRUBIN.T OTAL [MASS/VOLUM E] IN SERUM OR PLASMA 0.8 0.2 - 1.2 07/28 Specimen Type: PLASMA Comment: Elevated triglycerid e result from a non-fasting specimen should be interpreted with caution. A fasting panel is recommended for accurate triglycerid es when trigs are >200 from a non-fasting specimen. Ordering Provider: ANDI العلي Report Released Date/Time: Jul 29, 2022 09:02 AM Reporting Lab: [facility] [address] Performing Lab: [facility] [address] [place] [facility] COMPREHEN SIVE METABOLIC PANEL+MG MAGNESIUM [MASS/VOLUM E] IN SERUM OR PLASMA 2.2 1.6 - 2.6 07/28 Specimen Type: PLASMA Comment: Elevated triglycerid e result from a non-fasting specimen should be interpreted with caution. A fasting panel is recommended for accurate triglycerid es when trigs are >200 from a non-fasting specimen. Ordering Provider: ANDI العلي Report Released Date/Time: Jul 29, 2022 09:02 AM Reporting Lab: [facility] [address] Performing Lab: [facility] [address] [place] [facility] COMPREHEN SIVE METABOLIC PANEL+MG ANION GAP IN SERUM OR PLASMA 11 5 - 15 07/28 Specimen Type: PLASMA Comment: Elevated triglycerid e result from a non-fasting specimen should be interpreted with caution. A fasting panel is recommended for accurate triglycerid es when trigs are >200 from a non-fasting specimen. Ordering Provider: ADNI العلي Report Released Date/Time: Jul 29, 2022 09:02 AM Reporting Lab: [facility] [address] Performing Lab: [facility] [address] [place] [facility] COMPREHEN SIVE METABOLIC PANEL+MG ALKALINE PHOSPHATASE [ENZYMATIC ACTIVITY/VO LUME] IN SERUM OR PLASMA 66 40 - 150 07/28 Specimen Type: PLASMA Comment: Elevated triglycerid e result from a non-fasting specimen should be interpreted with caution. A fasting panel is recommended for accurate triglycerid es when trigs are >200 from a non-fasting specimen. Ordering Provider: ANDI العلي Report Released Date/Time: Jul 29, 2022 09:02 AM Reporting Lab: [facility] [address] Performing Lab: [facility] [address] [place] [facility] COMPREHEN SIVE METABOLIC PANEL+MG ALANINE AMINOTRANSF ERASE [ENZYMATIC ACTIVITY/VO LUME] IN SERUM OR PLASMA 38 <55 - 55 07/28 Specimen Type: PLASMA Comment: Elevated triglycerid e result from a non-fasting specimen should be interpreted with caution. A fasting panel is recommended for accurate triglycerid es when trigs are >200 from a non-fasting specimen. Ordering Provider: ANDI العلي Report Released Date/Time: Jul 29, 2022 09:02 AM Reporting Lab: [facility] [address] Performing Lab: [facility] [address] [place] [facility] COMPREHEN SIVE METABOLIC PANEL+MG ASPARTATE AMINOTRANSF ERASE [ENZYMATIC ACTIVITY/VO LUME] IN SERUM OR PLASMA 29 <34 - 34 07/28 Specimen Type: PLASMA Comment: Elevated triglycerid e result from a non-fasting specimen should be interpreted with caution. A fasting panel is recommended for accurate triglycerid es when trigs are >200 from a non-fasting specimen. Ordering Provider: ANDI العلي Report Released Date/Time: Jul 29, 2022 09:02 AM Reporting Lab: [facility] [address] Performing Lab: [facility] [address] [place] [facility] COMPREHEN SIVE METABOLIC PANEL+MG GLOMERULAR FILTRATION RATE/1.73 SQ M.PREDICTED [VOLUME RATE/AREA] IN SERUM, PLASMA OR BLOOD BY CREATININE- BASED FORMULA (CKD-EPI 2020) 72 60 07/28 Specimen Type: PLASMA Comment: Elevated triglycerid e result from a non-fasting specimen should be interpreted with caution. A fasting panel is recommended for accurate triglycerid es when trigs are >200 from a non-fasting specimen. Ordering Provider: ANDI العلي Report Released Date/Time: Jul 29, 2022 09:02 AM Reporting Lab: [facility] [address] Performing Lab: [facility] [address] [place] [facility] HEMOGLOBI N A1C HEMOGLOBIN A1C/HEMOGLO BIN.TOTAL IN BLOOD 7.3 4.0 - 6.0 07/29 H Specimen Type: BLOOD Comment: Values obtained from A1C measurement s can vary. For typical A1C assays, a reported value of 7.0 could actually be between 6.7 and 7.3 if measured by a reference method. A reported value of 9.0 could actually be between 8.7 and 9.3. Ref: http://www. ngsp.org/[place] Pdata.asp Ordering Provider: ANDI العلي Report Released Date/Time: Oct 29, 2021 04:47 PM Reporting Lab: [facility] [address] Performing Lab: [facility] [address] [place] [facility] LIPID PANEL,NON -FASTING CHOLESTEROL [MASS/VOLUM E] IN SERUM OR PLASMA 147 <199 - 199 07/29 Specimen Type: PLASMA Comment: Elevated triglycerid e result from a non-fasting specimen should be interpreted with caution. A fasting panel is recommended for accurate triglycerid es when trigs are >200 from a non-fasting specimen. Ordering Provider: ANDI العلي Report Released Date/Time: Oct 29, 2021 04:47 PM Reporting Lab: [facility] [address] Performing Lab: [facility] [address] [place] [facility] LIPID PANEL,NON -FASTING CHOLESTEROL IN HDL [MASS/VOLUM E] IN SERUM OR PLASMA 40 40 07/29 Specimen Type: PLASMA Comment: Elevated triglycerid e result from a non-fasting specimen should be interpreted with caution. A fasting panel is recommended for accurate triglycerid es when trigs are >200 from a non-fasting specimen. Ordering Provider: ANDI العلي Report Released Date/Time: Oct 29, 2021 04:47 PM Reporting Lab: [facility] [address] Performing Lab: [facility] [address] [place] [facility] LIPID PANEL,NON -FASTING CHOLESTEROL IN LDL [MASS/VOLUM E] IN SERUM OR PLASMA BY CALCULATION 55 <99 - 99 07/29 Specimen Type: PLASMA Comment: Elevated triglycerid e result from a non-fasting specimen should be interpreted with caution. A fasting panel is recommended for accurate triglycerid es when trigs are >200 from a non-fasting specimen. Ordering Provider: ANDI العلي Report Released Date/Time: Oct 29, 2021 04:47 PM Reporting Lab: [facility] [address] Performing Lab: [facility] [address] [place] [facility] LIPID PANEL,NON -FASTING CHOLESTEROL IN VLDL [MASS/VOLUM E] IN SERUM OR PLASMA BY CALCULATION 52 <29 - 29 07/29 H Specimen Type: PLASMA Comment: Elevated triglycerid e result from a non-fasting specimen should be interpreted with caution. A fasting panel is recommended for accurate triglycerid es when trigs are >200 from a non-fasting specimen. Ordering Provider: ANDI العلي Report Released Date/Time: Oct 29, 2021 04:47 PM Reporting Lab: [facility] [address] Performing Lab: [facility] [address] [place] [facility] LIPID PANEL,NON -FASTING CHOLESTEROL NON HDL [MASS/VOLUM E] IN SERUM OR PLASMA 107 <129 - 129 07/29 Specimen Type: PLASMA Comment: Elevated triglycerid e result from a non-fasting specimen should be interpreted with caution. A fasting panel is recommended for accurate triglycerid es when trigs are >200 from a non-fasting specimen. Ordering Provider: ANDI العلي Report Released Date/Time: Oct 29, 2021 04:47 PM Reporting Lab: [facility] [address] Performing Lab: [facility] [address] [place] [facility] LIPID PANEL,NON -FASTING TRIGLYCERID E [MASS/VOLUM E] IN SERUM OR PLASMA 258 <149 - 149 07/29 H Specimen Type: PLASMA Comment: Elevated triglycerid e result from a non-fasting specimen should be interpreted with caution. A fasting panel is recommended for accurate triglycerid es when trigs are >200 from a non-fasting specimen. Ordering Provider: ANDI العلي Report Released Date/Time: Oct 29, 2021 04:47 PM Reporting Lab: [facility] [address] Performing Lab: [facility] [address] [facility] COMPREHEN SIVE METABOLIC PANEL+MG CREATININE [MASS/VOLUM E] IN SERUM OR PLASMA 1.1 0.7 - 1.2 07/29 Specimen Type: PLASMA Comment: Elevated triglycerid e result from a non-fasting specimen should be interpreted with caution. A fasting panel is recommended for accurate triglycerid es when trigs are >200 from a non-fasting specimen. Ordering Provider: ANDI العلي Report Released Date/Time: Oct 29, 2021 04:47 PM Reporting Lab: [facility] [address] Performing Lab: [facility] [address] [place] [facility] COMPREHEN SIVE METABOLIC PANEL+MG UREA NITROGEN [MASS/VOLUM E] IN SERUM OR PLASMA 15 8 - 26 07/29 Specimen Type: PLASMA Comment: Elevated triglycerid e result from a non-fasting specimen should be interpreted with caution. A fasting panel is recommended for accurate triglycerid es when trigs are >200 from a non-fasting specimen. Ordering Provider: ANDI العلي Report Released Date/Time: Oct 29, 2021 04:47 PM Reporting Lab: [facility] [address] Performing Lab: [facility] [address] [place] [facility] COMPREHEN SIVE METABOLIC PANEL+MG GLUCOSE [MASS/VOLUM E] IN SERUM OR PLASMA 156 70 - 100 07/29 H Specimen Type: PLASMA Comment: Elevated triglycerid e result from a non-fasting specimen should be interpreted with caution. A fasting panel is recommended for accurate triglycerid es when trigs are >200 from a non-fasting specimen. Ordering Provider: ANDI العلي Report Released Date/Time: Oct 29, 2021 04:47 PM Reporting Lab: [facility] [address] Performing Lab: [facility] [address] [place] [facility] COMPREHEN SIVE METABOLIC PANEL+MG SODIUM [MOLES/VOLU ME] IN SERUM OR PLASMA 139 136 - 145 07/29 Specimen Type: PLASMA Comment: Elevated triglycerid e result from a non-fasting specimen should be interpreted with caution. A fasting panel is recommended for accurate triglycerid es when trigs are >200 from a non-fasting specimen. Ordering Provider: ANDI العلي Report Released Date/Time: Oct 29, 2021 04:47 PM Reporting Lab: [facility] [address] Performing Lab: [facility] [address] [place] [facility] COMPREHEN SIVE METABOLIC PANEL+MG POTASSIUM [MOLES/VOLU ME] IN SERUM OR PLASMA 3.8 3.5 - 5.1 07/29 Specimen Type: PLASMA Comment: Elevated triglycerid e result from a non-fasting specimen should be interpreted with caution. A fasting panel is recommended for accurate triglycerid es when trigs are >200 from a non-fasting specimen. Ordering Provider: ANDI العلي Report Released Date/Time: Oct 29, 2021 04:47 PM Reporting Lab: [facility] [address] Performing Lab: [facility] [address] [place] [facility] COMPREHEN SIVE METABOLIC PANEL+MG CHLORIDE [MOLES/VOLU ME] IN SERUM OR PLASMA 108 98 - 107 07/29 H Specimen Type: PLASMA Comment: Elevated triglycerid e result from a non-fasting specimen should be interpreted with caution. A fasting panel is recommended for accurate triglycerid es when trigs are >200 from a non-fasting specimen. Ordering Provider: ANDI العلي Report Released Date/Time: Oct 29, 2021 04:47 PM Reporting Lab: [facility] [address] Performing Lab: [facility] [address] [place] [facility] COMPREHEN SIVE METABOLIC PANEL+MG CARBON DIOXIDE, TOTAL [MOLES/VOLU ME] IN SERUM OR PLASMA - 07/29 L Specimen Type: PLASMA Comment: Elevated triglycerid e result from a non-fasting specimen should be interpreted with caution. A fasting panel is recommended for accurate triglycerid es when trigs are >200 from a non-fasting specimen. Ordering Provider: ANDI العلي Report Released Date/Time: Oct 29, 2021 04:47 PM Reporting Lab: [facility] [address] Performing Lab: [facility] [address] [facility] COMPREHEN [facility]IVE [facility]ABOLIC PANEL+MG CALCIUM [MASS/VOLUM E] IN SERUM OR PLASMA 9.7 8.4 - 10.2 07/29 Specimen Type: PLASMA Comment: Elevated triglycerid e result from a non-fasting specimen should be interpreted with caution. A fasting panel is recommended for accurate triglycerid es when trigs are >200 from a non-fasting specimen. Ordering Provider: ANDI العلي Report Released Date/Time: Oct 29, 2021 04:47 PM Reporting Lab: [facility] [address] Performing Lab: [facility] [address] [place] [facility] COMPREHEN SIVE METABOLIC PANEL+MG PROTEIN [MASS/VOLUM E] IN SERUM OR PLASMA 7.5 6.0 - 8.3 07/29 Specimen Type: PLASMA Comment: Elevated triglycerid e result from a non-fasting specimen should be interpreted with caution. A fasting panel is recommended for accurate triglycerid es when trigs are >200 from a non-fasting specimen. Ordering Provider: ANDI العلي Report Released Date/Time: Oct 29, 2021 04:47 PM Reporting Lab: [address] Performing Lab: [address] [facility] COMPREHEN SIVE METABOLIC PANEL+MG ALBUMIN [MASS/VOLUM E] IN SERUM OR PLASMA 4.3 3.5 - 5.2 07/29 Specimen Type: PLASMA Comment: Elevated triglycerid e result from a non-fasting specimen should be interpreted with caution. A fasting panel is recommended for accurate triglycerid es when trigs are >200 from a non-fasting specimen. Ordering Provider: ANDI العلي Report Released Date/Time: Oct 29, 2021 04:47 PM Reporting Lab: [facility] [address] Performing Lab: [place] [address] [facility] COMPREHEN SIVE METABOLIC PANEL+MG BILIRUBIN.T OTAL [MASS/VOLUM E] IN SERUM OR PLASMA 0.7 0.2 - 1.2 07/29 Specimen Type: PLASMA Comment: Elevated triglycerid e result from a non-fasting specimen should be interpreted with caution. A fasting panel is recommended for accurate triglycerid es when trigs are >200 from a non-fasting specimen. Ordering Provider: ANDI العلي Report Released Date/Time: Oct 29, 2021 04:47 PM Reporting Lab: [facility] [address] Performing Lab: [facility] [address] [facility] COMPREHEN SIVE METABOLIC PANEL+MG MAGNESIUM [MASS/VOLUM E] IN SERUM OR PLASMA 2.1 1.6 - 2.6 07/29 Specimen Type: PLASMA Comment: Elevated triglycerid e result from a non-fasting specimen should be interpreted with caution. A fasting panel is recommended for accurate triglycerid es when trigs are >200 from a non-fasting specimen. Ordering Provider: ANDI العلي Report Released Date/Time: Oct 29, 2021 04:47 PM Reporting Lab: [facility] [address] Performing Lab: [facility] [address] [facility] COMPREHEN SIVE METABOLIC PANEL+MG ANION GAP IN SERUM OR PLASMA 10 5 - 15 07/29 Specimen Type: PLASMA Comment: Elevated triglycerid e result from a non-fasting specimen should be interpreted with caution. A fasting panel is recommended for accurate triglycerid es when trigs are >200 from a non-fasting specimen. Ordering Provider: ANDI العلي Report Released Date/Time: Oct 29, 2021 04:47 PM Reporting Lab: [facility] [address] Performing Lab: [facility] [address] [facility] COMPREHEN SIVE METABOLIC PANEL+MG ALKALINE PHOSPHATASE [ENZYMATIC ACTIVITY/VO LUME] IN SERUM OR PLASMA 70 40 - 150 07/29 Specimen Type: PLASMA Comment: Elevated triglycerid e result from a non-fasting specimen should be interpreted with caution. A fasting panel is recommended for accurate triglycerid es when trigs are >200 from a non-fasting specimen. Ordering Provider: ANDI العلي Report Released Date/Time: Oct 29, 2021 04:47 PM Reporting Lab: [facility] [address] Performing Lab: [facility] [address] [facility] COMPREHEN SIVE METABOLIC PANEL+MG ALANINE AMINOTRANSF ERASE [ENZYMATIC ACTIVITY/VO LUME] IN SERUM OR PLASMA 47 <55 - 55 07/29 Specimen Type: PLASMA Comment: Elevated triglycerid e result from a non-fasting specimen should be interpreted with caution. A fasting panel is recommended for accurate triglycerid es when trigs are >200 from a non-fasting specimen. Ordering Provider: ANDI العلي Report Released Date/Time: Oct 29, 2021 04:47 PM Reporting Lab: [facility] [address] Performing Lab: [facility] [address] [facility] COMPREHEN SIVE METABOLIC PANEL+MG ASPARTATE AMINOTRANSF ERASE [ENZYMATIC ACTIVITY/VO LUME] IN SERUM OR PLASMA 38 <34 - 34 07/29 H Specimen Type: PLASMA Comment: Elevated triglycerid e result from a non-fasting specimen should be interpreted with caution. A fasting panel is recommended for accurate triglycerid es when trigs are >200 from a non-fasting specimen. Ordering Provider: ANDI العلي Report Released Date/Time: Oct 29, 2021 04:47 PM Reporting Lab: [facility] [address] Performing Lab: [facility] [address] [facility] COMPREHEN SIVE METABOLIC PANEL+MG GLOMERULAR FILTRATION RATE/1.73 SQ M.PREDICTED [VOLUME RATE/AREA] IN SERUM, PLASMA OR BLOOD BY CREATININE- BASED FORMULA (CKD-EPI) 72 60 07/29 Specimen Type: PLASMA Comment: Elevated triglycerid e result from a non-fasting specimen should be interpreted with caution. A fasting panel is recommended for accurate triglycerid es when trigs are >200 from a non-fasting specimen. Ordering Provider: ANDI العلي Report Released Date/Time: Oct 29, 2021 04:47 PM Reporting Lab: [facility] [address] Performing Lab: [facility] [address] [facility] Vital Signs Combined list of inpatient and outpatient Vital Signs from Department of Defense and Veterans Affairs, ranging from 12 months to all on record, depending upon the facility. Vital Sign Value Date Comments Source Encounters Combined list of: 1) Encounters from Department of Veterans Affairs facilities going back up to thelast 18 months. 2) Encounters from the Department of Defense facilities going back up to 280 months. Location Location Details Encounter Type Encounter Number Reason For Visit Attending Provider ADM Date DC Date Status Disposition Source [facility] [place] [id number] Diagnos is: ICD-10- CM Z23 Encount er for immuniz ation<b r/> Felix ROUSSEAU [employer] E 07/29 [facility] OFFICE O/P EST LOW 20-29 MIN [id number] Diagnos is: ICD-10- CM E11.9 Type 2 diabete s mellitu s without complic ations< br/> ANDI العلي 07/29 [facility] IMG RTA DETCJ/MNTR DS STAFF [id number] Diagnos is: ICD-10- CM Z01.00 Encount er for exam of eyes and vision w/o abnorma l finding s
ALFIE OCTAVIO J 07/29 [facility] Outpatient Encounter [id number] Diagnos is: ICD-10- CM Z01.01 Encount er for exam of eyes and vision w abnorma l finding s
SUSAN ROJO S 07/30 [facility] Outpatient Encounter [id number] 07/09 [facility] OFFICE O/P EST LOW 20 MIN [id number] Diagnos is: ICD-10- CM E11.9 Type 2 diabete s mellitu s without complic ations< br/> ZOHRAANDI S 07/28 [facility] IMG RTA DETC/MNTR DS PHY/QHP [id number] Diagnos is: ICD-10- CM Z01.01 Encount er for exam of eyes and vision w abnorma l finding s
Adi SEO 07/28 [facility] CPTR OPHTH DX IMG POST SEGMT [id number] Diagnos is: ICD-10- CM Z01.01 Encount er for exam of eyes and vision w abnorma l finding s
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 Social History Type Response Date Comment Sourc e Tobacco smoking status [facility] NEVER USED 07/28/2023 TANK Ruiz [facility]20[facility]30/2021 [facility] History of tobacco use [place] NEVER US[place] 04/24/2020 [facility] 07/05/2019 [facility] History of tobacco use [employer] NON-TOBA [employer] COMPOS[employer] USER 01/06/2018 [facility] History of tobacco use [employer]IF[employer]IME NON-TOBA DIGITAL COMPOSER USER 01/13/2017 [facility] History of tobacco use [employer]IFETIME NON-TOBA DIGITAL COMPOSER USER 01/04/2016 [facility] History of tobacco use [employer]IFETIME NON-TOBA DIGITAL COMPOSER USER 02/23/2015 [facility] Advance Directives List of completed, amended, or rescinded Advance Directives on record at [facility] of [facility] facilities. An actual copy of the Directive is not included. Date Advance Directive Provider Source 05/11/2021 ADVANCE DIRECTIVE DISCUSSION KAILA BLANTON [facility]
--- OUTSIDE RECORDS SUMMARY | 2023-12-10 06:52 | XMS_ITS | Encounter Summary ---
Author Name [facility] Organization [facility] Address [address] [place] [address] Support Name Relationship Address Phone KIRSTEN HOLLY Next of Kin [address] [phone] KIRSETN HOLLY Emergency Contact [address] [place] [phone] Insurance Providers: [...] Ruiz's Name Patient's Relationship to Policy Ruiz [facility] (WNR) MEDICARE ADVANTAGE [facility] (WNR) Apr 26, 2017 [id number] [phone] JUAN ANTONIO HOLLY PATIENT Selected Encounter This section includes the information on record at [facility] for the Encounter. Date/Time Encounter Type Encounter Description Reason Provider Source December 01, 2023 10:20 AM OFFICE O/P EST MOD 30 MIN OPHTHALMOLOGY ICD-10-CM E11.9 Type 2 diabetes mellitus without complications JADON BRASWELL Maya Encounter Template Text not used by [facility] Assessments - Encounter Diagnoses This section includes the primary and secondary diagnoses documented for the Encounter. Date/Time Primary/Secondary Diagnosis Diagnosis Name Provider Source December 01, 2023 12:52 PM PRIMARY Type 2 diabetes mellitus without complications JADON BRASWELL [facility] December 01, 2023 12:52 PM SECONDARY Combined forms of age-related cataract, bilateral JADON BRASWELL [facility] December 01, 2023 12:52 PM SECONDARY Drusen (degenerative) of macula, bilateral JADON BRASWELL [facility] December 01, 2023 12:52 PM SECONDARY Lattice degeneration of retina, left eye FRENCH,JADON Gunn [facility] December 01, 2023 12:52 PM SECONDARY Preglaucoma, unspecified, bilateral FRENCH,JADON Gunn [facility] December 01, 2023 12:52 PM SECONDARY Presbyopia FRENCHNEW CASTLE Velia [facility] Social History: Smoking Status (Most current) and Tobacco Use (All prior to encounter date) This section includes the most current, and the historical, smoking and tobacco- related health factors from the [facility] facility where the Encounter took place. Current Smoking Status This section includes the most current smoking, or tobacco-related health factor, from the [facility] facility where the Encounter took place. Date/Time Current Smoking Status Comment Anoop ity Jul 28, 2023 09:15 AM [facility]-TOBACCO NEVER USED [facility] Tobacco Use History This section includes a history of the smoking, or tobacco-related health factors, that were collected on or before the date of the Encounter. The data comes from the [facility] facility where the Encounter took place. Date/Time Smoking Status/Tobacco Use Comment F acility Jul 29, 2022 08:45 AM VA-TOBACCO NEVER USED [facility] Apr 30, 2021 08:45 AM VA-TOBACCO NEVER USED [facility] Apr 24, 2020 08:30 AM VA-TOBACCO NEVER USED [facility] Jul 05, 2019 09:30 AM VA-TOBACCO NEVER USED [facility] Jan 06, 2018 10:05 AM LIFETIME NON-TOBACCO USER [facility] Jan 13, 2017 09:04 AM LIFETIME NON-TOBACCO USER [facility] Jan 04, 2016 07:52 AM LIFETIME NON-TOBACCO USER [facility] Feb 23, 2015 08:47 AM LIFETIME NON-TOBACCO USER [facility] Advance Directives: All historical and current Section Date Range: From patient's date of to the date document was created. This section includes ALL of a patient's completed or amended [facility] Advance and Rescinded Directives. The entries below indicate that a directive exists for the patient, but an actual copy is not included with this document. The data comes from all [facility] facilities. Date Advance Directives Provider Source May 11, 2021 ADVANCE DIRECTIVE KAILA BLANTON [facility] May 11, 2021 ADVANCE DIRECTIVE DISCUSSION KAILA BLANTON [facility] Encounter Notes: All associated encounter notes This section contains the clinical notes associated to the Encounter. Date/Time Encounter Note(s) Provider Source December 01, 2023 12:21 PM OPHTHALMOLOGY ATTE NDING NOTE: LOCAL TITLE: OPHTHALMOLOGY CLINIC NOTE STANDARD TITLE: OPHTHALMOLOGY ATTENDING NOTE DATE OF NOTE: DECEMBER 01, 2023@12:21 ENTRY DATE: DECEMBER 01, 2023@12:21:25 AUTHOR: JADON BRASWELL EXP COSIGNER: URGENCY: STATUS: COMPLETED LOCAL TITLE: ROVING SIZER NOTE STANDARD TITLE: ROVING SIZER NOTE DATE OF NOTE: DECEMBER 01, 2023@11:04 ENTRY DATE: DECEMBER 01, 2023@11:04:45 AUTHOR: RODY SHI EXP COSIGNER: URGENCY: STATUS: COMPLETED Eye Start Exam Patient: DALTON HOLLY Sex: MALE SSN: [id number] Birthdate: [birth year] Chief complaint: here for follow up and to have some images of eyes done after seein the [facility] program in July. the left eye is bothering him, it just feels a little weird and is always kind of rubbing it on the side Active problems - Computerized Problem List is the source for the followin. Diabetes mellitus 2. Hyperlipidemia 3. Obstructive sleep apnea of adult 4. Peripheral neuropathy due to type 2 diabetes mellitus 5. Exposure to potentially hazardous substance ([facility] [id number]) - Entered through [facility] [place] Documentation Initiative Surgeries: SURGERIES - NONE FOUND Follow Up Exam Eye Medications Patient denies eye medication use. Allergies: Patient has answered NKA No new Allergies. Vision: OD:SC(without glasses) OD: 20/25-1+1 Pinhole: 20/ Near: 20/ Vision: OS:SC(without glasses) 0S: 20/20 Pinhole: 20/ Near: 20/ Confrontational Ott: Full to finger counting: Right: Yes Left: Yes Extra Ocular Movement: Normal Pupils: Right: Round Left: Round Size: Right: 4 Left: 4 React to light: Right: Yes Left: Yes Afferent pupil defect: Right:No Grade: Left: No Grade: Note: Intra-ocular pressure (IOP): OD: 14 OS: 15 iCare Dilation: mydriacyl 1% and neosynephrine OU November@11:10 I have reviewed and agree with the veterinary assistant technician note of today Patient is alert and oriented X3 and mood and affect are appropriate. SLE: External: normal ou Lid/Lash: normal ou Conj/Sclera:clear and quiet ou Cornea: clear ou AC: Deep & quiet ou Iris: normal without RI or defects ou Lens: 2+ ns cc ou Dilated exam: yes Optic nerve: normal ou, vC/D:0.4/0.5 Macula:few small drusen ou Vessels: normal ou Periphery: Flat ou, lattice S os Vitreous: Normal, no pigment or heme ou Assessment/Plan: niddm, no dr bs bp bc disc lattice os ss rd s/p lasik ou glauc susp dt cdr iop today pach 490/505 rnfl 12/01/23 ou:wnl, shifted peaks comb cat ou tint elig, monitor bleph/andrew assymptomatic wc ls pfat prn drusen ou areds not indic oct mac 12/01/23 ou:no erm/irf/srf nevus/freckle lll photos today refract error/presbyopia RTC:1 y, 24-2, mr, vtd, rnfl, mac sooner with changes Total time spent on spent on testing/chart review, exam, discussion, and charting was in excess of 30 minutes. /rod/ JADON BRASWELL MD STAFF ADMINISTRATIVE OFFICER Signed: 12/01/2023 12:53 JADON BRASWELL [facility] December 01, 2023 11:28 AM OPHTHALMOLOGY CONS ULT: LOCAL TITLE: OPHTHALMOLOGY IMAGING MSP OUTPT CONSULT STANDARD TITLE: OPHTHALMOLOGY CONSULT DATE OF NOTE: DECEMBER 01, 2023@11:28 ENTRY DATE: DECEMBER 01, 2023@11:28:15 AUTHOR: LUCIEN RAMEY EXP COSIGNER: URGENCY: STATUS: COMPLETED Requested test(s) done, OCT of maculae and rNFL OU by Kirti Slitlamp photos taken: LLL - limited by no primary flash unit results uploaded to windows server administrator for review. /CONCHA Walton CRA Matrix Repairer Signed: 12/01/2023 11:28 LUCIEN RAMEY [facility] December 01, 2023 11:04 AM OPHTHALMOLOGY TECH NICIAN NOTE: LOCAL TITLE: ROVING SIZER NOTE STANDARD TITLE: ROVING SIZER NOTE DATE OF NOTE: DECEMBER 01, 2023@11:04 ENTRY DATE: DECEMBER 01, 2023@11:04:45 AUTHOR: RODY SHI EXP COSIGNER: URGENCY: STATUS: COMPLETED Eye Start Exam Patient: DALTON HOLLY Sex: MALE SSN: [id number] Birthdate: [birth year] Chief complaint: here for follow up and to have some images of eyes done after seein the [facility] program in July. the left eye is bothering him, it just feels a little weird and is always kind of rubbing it on the side Active problems - Computerized Problem List is the source for the followin. Diabetes mellitus 2. Hyperlipidemia 3. Obstructive sleep apnea of adult 4. Peripheral neuropathy due to type 2 diabetes mellitus 5. Exposure to potentially hazardous substance ([facility] [id number]) - Entered through [facility]/[address] Documentation Initiative Surgeries: SURGERIES - NONE FOUND Follow Up Exam Eye Medications Patient denies eye medication use. Allergies: Patient has answered NKA No new Allergies. Vision: OD:SC(without glasses) OD: 20/25-1+1 Pinhole: 20/ Near: 20/ Vision: OS:SC(without glasses) 0S: 20/20 Pinhole: 20/ Near: 20/ Confrontational Ott: Full to finger counting: Right: Yes Left: Yes Extra Ocular Movement: Normal Pupils: Right: Round Left: Round Size: Right: 4 Left: 4 React to light: Right: Yes Left: Yes Afferent pupil defect: Right:No Grade: Left: No Grade: Note: Intra-ocular pressure (IOP): OD: 14 OS: 15 iCare Dilation: mydriacyl 1% and neosynephrine OU November@11:10 /rod/ RODY SHI TEST DESKMAN Signed: 12/01/2023 11:10 RODY SHI [facility]
--- OUTSIDE RECORDS SUMMARY | 2023-12-10 06:52 | XMS_ITS | Encounter Summary ---
Author Name [employer] Organization [facility] [employer] Address [address] [place] [address] Support Name Relationship Address Phone KIRSTEN HOLLY Next of Kin [address] [place] [phone] KIRSTEN HOLLY Emergency Contact [address] [place] [phone] Insurance Providers: [...] Ruiz's Name Patient's Relationship to Policy Ruiz [facility] (WNR) MEDICARE ADVANTAGE [facility] (WNR) Apr 26, 2017 [id number] [phone] JUAN ANTONIO HOLLY PATIENT Selected Encounter This section includes the information on record at [place] for the Encounter. Date/Time Encounter Type Encounter Description Reason Provider Source Jul 29, 2023 02:53 PM CPTR OPHTH DX IMG POST [facility] OPHTHALMOLOGY ICD-10-CM Z01.01 Encounter for exam of eyes and vision w abnormal findings DEJA VARELA MD E Encounter Template Text not used by [place] Assessments - Encounter Diagnoses This section includes the primary and secondary diagnoses documented for the Encounter. Date/Time Primary/Secondary Diagnosis Diagnosis Name Provider Source Jul 29, 2023 03:51 PM PRIMARY Encounter for exam of eyes and vision w abnormal findings DEJA VARELA MD [facility] Jul 29, 2023 03:51 PM SECONDARY Age-related nuclear cataract, bilateral DEJA VARELA MD [facility] Jul 29, 2023 03:51 PM SECONDARY Lattice degeneration of retina, unspecified eye DEJA VARELA [facility] Jul 29, 2023 03:51 PM SECONDARY Presbyopia DEJA VARELA [facility] Jul 29, 2023 03:51 PM SECONDARY Unspecified astigmatism, bilateral DEJA VARELA [facility] Jul 29, 2023 03:51 PM SECONDARY Unspecified blepharitis unspecified eye, unspecified eyelid DEJA VARELA [facility] Jul 29, 2023 03:51 PM SECONDARY Unspecified disorder of iris and ciliary body DEJA VARELA [facility] Plan of Treatment: Future Appointments (+ 6 months) and Future Tests (+/- 45 days) The Plan of Treatment section includes future care activities for the patient from all [facility]. This section includes future appointments and future orders which are active, pending or scheduled. Future Appointments This section includes appointments that were scheduled to occur 6 months from the date of the Encounter, up to a maximum of 20 appointments. The data comes from all [place] treatment facilities. Appointment Date/Time Appointment Type Appointme nt Facility Name December 01, 2023 10:20 AM AMBULATORY - SURGERY [facility] Lab Results: +/- 30 days of the encounter This section includes the Chemistry and Hematology Lab Results on record with [facility] for the patient. Radiology Reports and Pathology Reports are provided separately, in subsequent sections. Lab Results This section contains the Chemistry/Hematology Results that were resulted 30 days before or 30 daysafter the date of the Encounter. Date/Time Source Result Type Result - Unit Interpretation Reference Range Comment Jul 28, 2023 08:13 AM [facility] HEMOGLOBIN A1C Specimen Type: BLOOD Comment: [...] Jul 29, 2022 09:02 AM Reporting Lab: [facility] [id number] Performing Lab: [facility] [id number] HEMOGLOBIN A1C 6.6 H 4.0-6.0 Jul 28, 2023 08:13 AM [facility] LIPID PANEL,NON-FASTING Specimen Type: PLASMA Comment: Elevated triglyceride result from a non-fasting specimen should be interpreted with caution. A fasting panel is recommended for accurate triglycerides when trigs are >200 from a non-fasting specimen. Ordering Provider: ANDI العلي Report Released Date/Time: Jul 29, 2022 09:02 AM Reporting Lab: [facility] [id number] Performing Lab: [facility] [id number] CHOLESTEROL 150 <199 .HDL 45 >40 LDL CALCULATION 57 <99 VLDL CALCULATION 48 H <29 NON HDL CHOLESTEROL 105 <129 TRIG(NON FASTING) 242 H <149 Jul 28, 2023 08:13 AM [facility] COMPREHENSIVE METABOLIC PANEL+MG Specimen Type: PLASMA Comment: Elevated triglyceride result from a non-fasting specimen should be interpreted with caution. A fasting panel is recommended for accurate triglycerides when trigs are >200 from a non-fasting specimen. Ordering Provider: ANDI العلي Report Released Date/Time: Jul 29, 2022 09:02 AM Reporting Lab: [facility] [id number] Performing Lab: [facility] [id number] CREATININE 1.1 0.7-1.2 UREA NITROGEN 13 8-26 GLUCOSE 148 H 70-100 SODIUM 143 136-145 POTASSIUM 4.3 3.5-5.1 CHLORIDE 108 H 98-107 CO2 24 22-29 CALCIUM 9.5 8.4-10.2 PROTEIN,TOTAL 7.2 6.0-8.3 ALBUMIN 4.2 3.5-5.2 BILIRUBIN, TOTAL 0.8 0.2-1.2 MAGNESIUM 2.2 1.6-2.6 ANION GAP 11 5-15 ALKALINE PHOSPHATASE 66 40-150 ALT/SGPT 38 <55 AST/SGOT 29 <34 .CREAT EGFR(CKD-EPI) 72 >60 Social History: Smoking Status (Most current) and Tobacco Use (All prior to encounter date) This section includes the most current, and the historical, smoking and tobacco- related health factors from the [place] facility where the Encounter took place. Current Smoking Status This section includes the most current smoking, or tobacco-related health factor, from the [place] facility where the Encounter took place. Date/Time Current Smoking Status Comment Anoop vernon Jul 28, 2023 09:15 AM VA-TOBACCO NEVER USED [facility] Tobacco Use History This section includes a history of the smoking, or tobacco-related health factors, that were collected on or before the date of the Encounter. The data comes from the [place] facility where the Encounter took place. Date/Time Smoking Status/Tobacco Use Comment F acility Jul 29, 2022 08:45 AM VA-TOBACCO NEVER USED [facility] Apr 30, 2021 08:45 AM VA-TOBACCO NEVER USED [facility] Apr 24, 2020 08:30 AM VA-TOBACCO NEVER USED [facility] Jul 05, 2019 09:30 AM VA-TOBACCO NEVER USED [facility] Jan 06, 2018 10:05 AM LIFETIME NON-TOBACCO USER [facility] Jan 13, 2017 09:04 AM LIFETIME NON-TOBACCO USER [facility] Jan 04, 2016 07:52 AM LIFETIME NON-TOBACCO USER [facility] Feb 23, 2015 08:47 AM LIFETIME NON-TOBACCO USER [facility] Advance Directives: All historical and current Section Date Range: From patient's date of to the date document was created. This section includes ALL of a patient's completed or amended [place] Advance and Rescinded Directives. The entries below indicate that a directive exists for the patient, but an actual copy is not included with this document. The data comes from all [facility]. Date Advance Directives Provider Source May 11, 2021 ADVANCE DIRECTIVE [facility] May 11, 2021 ADVANCE DIRECTIVE DISCUSSION KAILA BLANTON [facility] Encounter Notes: All associated encounter notes This section contains the clinical notes associated to the Encounter. Date/Time Encounter Note(s) Provider Source December 03, 2023 01:24 PM ADDENDUM: LOCAL TITLE: Addendum STANDARD TITLE: ADDENDUM DATE OF NOTE: DECEMBER 03, 2023@13:24:11 ENTRY DATE: DECEMBER 03, 2023@13:24:12 AUTHOR: OCTAVIO JUDGE EXP COSIGNER: URGENCY: STATUS: COMPLETED completed f2f ophthalmology at [facility]. Notes in CPRS for review. Alerting [facility] provider for awareness. /lora JUDGE HE[facility] REVENUE CYCLE SPECIALIST OPHTHALMOLOGY Signed: 12/03/2023 13:24 Receipt Acknowledged By: 12/07/2023 12:16 /rod/ DEJA VARELA MDservice order clerk --- Original Document --- 07/29/23 OPHTHALMOLOGY/OPTOMETRY EYE TECS PROVIDER CONSULT: TECS Cook House Supervisor Note: 07/28/2023 10:29 Local Title: EYE TECS REVENUE CYCLE SPECIALIST Standard Title: TELEHEALTH NOTE Technology-based Eye Care Services (TECS) Cook House Supervisor Note ELAYN[place]ALTON [phone] Telehealth Consent and Patient Identification Verification: Verified patient identity with 2 separate identifiers prior to the beginning of the visit: Yes Patient was informed that their information and images will be uploaded securely to the [place] computer system and sent to be remotely interpreted by an eye provider. Recommendations/findings will be conveyed to them via phone call, video chat, and/or letter. Yes Patient verbalized understanding and agreed to participate in the TECS telemedicine eye exam today. Yes TECS Visit Type: Screening and Vision Assessment: Program [...] of last eye exam: [facility] Type of eye exam: TECS TECS HISTORY & REVIEW OF SYSTEMS No pain, decreased vision, sudden change in flashes or floaters, or sudden onset double vision. DIABETES HISTORY: Last A1c: <<Placeholder for LAST A1C object>> The patient has diabetes Duration of Diabetes: 5-10 years The patient is NOT on insulin EYE DISEASE(S) HISTORY: Tecs Cook House Supervisor 07/29/2022 VA-TECS EYE DX-CATARACTS [facility] EYE DX-OTHER Lattice OS superiorly EYE PROCEDURE(S) HISTORY: 07/29/2022 [facility]-T[facility]S EYE PROC-LASIK TRAUMA HISTORY: No history of ocular trauma FAMILY HISTORY OTHER: Sibling brother has eye issues, not sure of the specifics though. SOCIAL HISTORY: 07/29/2022 Tecs Tobacco Hx-No EYE MEDICATION(S): No Current Eye Medications REFRACTION AND VISION: scVA: OD: -3 OS: 20/20-3 Manifest Refraction (MRx): OD: plano+1.00x37 +1.75 OS: plano+0.51f795 +1.75 Final MRx VA: OD: -2 OS: 20 FINAL RX Tecs Glauc Tech 07/29/2022 Tecs Refrac-Final Mrx Od Jackson +0.50 x 047 +1.75 add Tecs Refrac-Final Mrx Os +0.25 sphere +1.75 add Additional MRx Information: Final MRx: OD: plano+1.00x37 +1.75 OS: plano+0.24g885 +1.75 Extraocular Movement, Confrontation Visual Ott, Amsler [...] C:D (Cup-to-Disc); CIC (Care In The Community); GYROSCOPIC ENGINEERING TECHNICIAN (Cyclophotocoagulation); CSME (Clinically Significant Macular Edema); DFE [...] MRx (Manifest Refraction); NeoPolyDex/Erythro (Neomycin Polymyxin B Dexamethasone/Erythromycin) ; NFL (Nerve Fiber Layer); NPDR (Nonproliferative Diabetic Retinopathy); OCT (Optical Coherence Tomography); OD (Right Eye); OS (Left Eye); OU (Both Eyes); PDR (Proliferative Diabetic Retinopathy); PFATs (Preservative Free Artificial Tears); RK (Radial Keratotomy); RNFL (Retinal Nerve Fiber Layer); RTC (Return To Clinic); scVA (Visual Acuity Without Correction/Glasses); VALENTINE (Vietnamese Interactive Threshold Algorithm); TID (Three Times Daily); UV (Ultraviolet); VA (Visual Acuity); WRx (Prescription glasses currently worn); WRx VA (Visual Acuity With Prescription Glasses); YAG (Yttrium Aluminum Kronenwetter) Signed by: /rod/ DEJA Trejo [facility] OPHTHALMOLOGY TASHI REVENUE CYCLE SPECIALIST 07/28/2023 10:58 TECS [place] Note: EXTERNAL PHOTOGRAPH ASSESSMENT: External photo quality adequate for interpretation Findings: Other: OU mild blepharitis, iris freckling/nevi, mild NS; OS: LLL freckle/nevus FUNDUS PHOTOGRAPH INTERPRETATION: Fundus Image Quality: Adequate OPTIC NERVE ASSESSMENT: Cup-to-Disc ratio: OD: 0.45H x 0.425V, +scleral halo and +PPA with pigmentation temporally OS: 0.5H x 0.5V, scleral halo and +PPA Findings: Other: OU Comment: as noted MACULA ASSESSMENT: Findings: Other: OU OD: blur limiting interpretation; OS: pigment mottling RETINA ASSESSMENT: Findings: Other: OU scattered circular changes OU, appear most likely to be artifact OU VESSEL ASSESSMENT: No apparent abnormalities: OU PACHYMETRY INTERPRETATION: OD: 490 OS: 505 OPTICAL COHERENCE TOMOGRAPHY (OCT): OCT Macula: Abnormal: Other/Comments(OCT Macula): OD: very tiny subfoveal ?cystic change (image net 60-61) OS: SN outer retinal undulations ASSESSMENT: Intraocular Pressure(past entry): 07/28/2023 TECS Eye IOP-OD 11 TECS Eye IOP-OS 10 Previous images and studies reviewed; greater than 31 minutes spent in the care of this patient. Comment: 07/30/2022 TECS TECS Exam Shows: Patient evaluated in Technology-based Eye Care Services (TECS). The TECS visit is not a complete eye exam and is not a substitute for an in person comprehensive eye exam; the TECS exam is limited in scope and cannot rule out pathology that is not imaged or tested for; in-person espo-uh-mxmo eye exams are important and recommended; Diabetes: No diabetic retinopathy OU HgA1C 6.6 on 07/28/2023; on metformin Recommend bg, bp, lipid, weight control, and optimization of cardiovascular status and general health in consultation with PCP; recommend compliance with health care management and routine screening exams with PCP and with eyecare providers Nerve: Other: OU Comment: c/d borderline, thin CCT OU (but s/p Lasik) Recommend f-2-f eval with ophth at [facility], consider baseline gonio and baseline ON OCT Refractive error: s/p Lasik OU Presbyopia OU and astig OU Spectacle Prescription: Not ordered; patient declines; he is happy with his OTC readers and he has sunglasses that he uses for distance when outside; he is aware if he changes his mind and wants prescription readers or sunglasses or transitions, he can call the clinic Mild Cataract (NS) OU: Patient does have some cataract, but they are not currently bothered or interested in surgical intervention; he declines spectacle RX at this time; he reports he does not drive at night or at times when lights could be bothersome to him; if any changes in vision or symptoms, to return to eye clinic/ED; UV protection/sunglasses; no driving and no activities at anytime that vision or any issues could affect ability to do so safely Obstructive sleep apnea: no eye rubbing; if lids become floppy, return to eye clinic for further eval; pres-free tears OU prn; if foreign body sensation, to eye clinic/ER PAPITO Blepharitis OU: warm compresses and lid hygiene OU QHS; pres-free tears OU prn; no eye rubbing Macula (other): ? tiny subfoveal cystic change (vs. artifact) OD on OCT; and some 'undulations' of outer retina OS on OCT; will place [facility] for Retina Consultation Iris freckling/nevi OU: UV protection, sunscreen, hat, sunglasses; routine skin checks with PCP and/or dermatology; routine eye exams with eye care providers; Recommend f-2-f eval with [facility] Ophthalmology (see below) LLL freckle/nevus: appears stable to 07/29/22 TECS imaging; UV protection, sunscreen, hat, sunglasses; routine skin checks with PCP and/or dermatology; routine eye exams with eye care providers; Recommend f-2-f eval with [facility] Ophthalmology (see below) including inspection of palpebral conj Phosphodiesterase type 5 inhibitors (which includes some erectile dysfunction medications including sildenafil) carry risks to vision such as ischemia, vascular occlusion, serous retinal detachment which can result in visual dysfunction, permanent vision loss, blindness; advise patient to strongly consider these risks prior to deciding whether to continue use and recommend they discuss with their PCP/prescribing provider; if patient ever develops any changes in vision, visual symptoms, to eye clinic/ED immediately (same day). 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; RD warnings (see below), if occur, to ED/eye clinic immediately (same day); recommend f-2-f f/u with [facility] Ophthalmology including dilation and periph exam OU FOLLOW-UP: Follow-up Recommendation: In-Person Exam with [facility] Ophthalmology (see above) for comprehensive ophth exam with SLE, DFE, consider baseline gonio, OCT, and repeat mac OCT Within 4-5 months (sooner prn): November to December 28, 2023 TECS Evaluation: Other: November mac and ON OCTs DISPOSITION: Result letter will be sent to the patient and includes follow-up recommendation/s and the phone number to reach the Eye Clinic, and encourages patient to review this note through my [employer] [facility] and call if any questions/symptoms. Please include in mailing of patient letter the educational handouts on: amsler, diabetes, cataract, blepharitis, erectile dysfunction medication RTC orders to [facility] Ophth 4-5 months and TECS 16 months placed as indicated per protocol. I spoke with the patient, verified patient identity with 2 separate identifiers, and we reviewed the findings and plan, all the patient's questions were asked and answered. The patient verbalized understanding of the care plan. He is aware if he develops new floaters or change in floaters (he has had floaters for years, not new), flashes, curtains, change in vision, any problems or symptoms, he must return to eye clinic (or to ED if after hours) immediately (same day). Treatment plan: The patient consented to the recommended treatment plan. Telehealth encounter completed by remote provider at [facility]: [facility] Greater than 31 minutes of time spent in the care of this patient. Appendix (abbreviations): AC (Anterior Chamber); AREDS (Age Related Eye Disease Study); ARX (Auto Refraction); BID (Two Times Daily); C:D (Cup-to-Disc); CIC (Care In The Community); GYROSCOPIC ENGINEERING TECHNICIAN (Cyclophotocoagulation); CSME (Clinically Significant Macular Edema); DFE [...] MRx (Manifest Refraction); NeoPolyDex/Erythro (Neomycin Polymyxin B Dexamethasone/Erythromycin) ; NFL (Nerve Fiber Layer); NPDR (Nonproliferative Diabetic Retinopathy); OCT (Optical Coherence Tomography); OD (Right Eye); OS (Left Eye); OU (Both Eyes); PDR (Proliferative Diabetic Retinopathy); PFATs (Preservative Free Artificial Tears); RK (Radial Keratotomy); RNFL (Retinal Nerve Fiber Layer); RTC (Return To Clinic); scVA (Visual Acuity Without Correction/Glasses); VALENTINE (Vietnamese Interactive Threshold Algorithm); TID (Three Times Daily); UV (Ultraviolet); VA (Visual Acuity); WRx (Prescription glasses currently worn); WRx VA (Visual Acuity With Prescription Glasses); YAG (Yttrium Aluminum Kronenwetter) /lora VARELA MDservice order clerk Signed: 07/29/2023 15:55 Receipt Acknowledged By: 07/30/2023 09:09 /rod/ LAVELLE [facility]GENER[facility] CRACKING AND FANNING MACHINE OPERATOR 08/05/2023 11:34 /rod/ MARYBEL LAO TRIMMING CUTTER MACHINE 07/29/2023 16:12 /rod/ MAYA Osorio V23 Virtual Eye Care 07/31/2023 08:16 /rod/ DEJA SEO OPHTHALMOLOGY ATSHI REVENUE CYCLE SPECIALIST 07/29/2023 ADDENDUM STATUS: COMPLETED For TECS WFC: It is recommended that the patient return to [facility] Ophthalmology in 4-5 months (sooner prn). Please monitor and if not seen/scheduled as recommended, please work with the patient and clinic staff to help get the patient scheduled to avoid delays in care (and notify TECS reader/s and/or optom/ophtho [id number] if urgent or reader not available). Please also notify TECS reader/s (and/or optom/ophtho [id number] if urgent or reader not available) when clinic notes are available for review. /lora VARELA MDservice order clerk Signed: 07/29/2023 15:56 Receipt Acknowledged By: 07/29/2023 16:09 /rod/ Fabrizio Carrero COT V23 Virtual Eye Care 07/29/2023 ADDENDUM STATUS: COMPLETED [facility] placed for Retina eval of macular OCTs. /lora VARELA MDservice order clerk Signed: 07/29/2023 16:02 08/17/2023 ADDENDUM STATUS: COMPLETED Please note patient is scheduled for f/u with [facility] Ophth December 01, 2023. /lora VARELA MDservice order clerk Signed: 08/17/2023 10:43 12/07/2023 ADDENDUM STATUS: COMPLETED Patient was seen by [facility] Ophth on 12/01/23 (see notes for details) and they placed RTCs for him to return to see them in one year. /lora VARELA MDservice order clerk Signed: 12/07/2023 12:14 12/07/2023 ADDENDUM STATUS: COMPLETED Please note, [facility] consult was done on 08/03/23 (see note for details) and patient has had subsequent f/u with [facility] Ophth on 12/01/23 and [facility] Ophth has placed RTCs for the patient to return to them in one year. /lora VARELA MDservice order clerk Signed: 12/07/2023 12:16 OCTAVIO JUDGE [facility] Jul 29, 2023 03:56 PM LETTERS: LOCAL TITLE: EYE TECS LETTERS STANDARD TITLE: LETTERS DATE OF NOTE: JUL 29, 2023@15:56 ENTRY DATE: JUL 29, 2023@15:56:33 AUTHOR: DEJA VARELA MD EXP COSIGNER: URGENCY: STATUS: COMPLETED Jul DALTON HOLLY [address] [place] [address] [place] [address] Dear DALTON HOLLY, Thank you for your recent visit to the Technology-Based Eye Care Services (TECS) Program visit at your local [facility] facility. The main goal of the TECS program is to screen for visually significant eye conditions. Based on the review of your eye information and the photos that were taken, we recommend an in-person follow-up evaluation by an eye care provider in the Ophthalmology Section at the [facility] within 4 to 5 months (sooner as needed). We also recommend that you are scheduled back with the TECS program within 16 months. We encourage you to review the results and recommendations from this visit by logging into My [facility] at [email or web address] or by requesting them through your [place] Medical Records/Release of Information office. Please call the eye clinic with any questions about your visit. You will receive a phone call from one of the [facility] staff to schedule a follow-up evaluation. If you do not hear from the VA within the next week regarding scheduling your appointment, please call them. You can reach the Eye Clinic through the number [phone]. You can also call the main number [phone], then '0', and ask the pin drafting machine operator to connect you to the eye clinic. If you notice any sudden changes in your vision, flashes, floaters, curtains, loss of vision, double vision, pain, redness, discharge, change in color vision, difficulty with night vision, visual disturbances, tearing, blacking out of vision, any problems or symptoms, we recommend that you return to eye clinic or go to emergency room immediately (same day). If you are a tobacco user, [facility] provides cessation services which can reduce the risk of eye disease as well as risks to your overall health. Please discuss with your [facility] Primary Care team for more information. If you have been seen by a non-VA eye care provider, please bring your records to your next [facility] appointment. Please try to keep your follow-up [facility] eye appointment or notify us if you cannot attend so that you may be rescheduled within a timely manner. Your health is important to us. Please note that the TECS (technology based eye care services) eye exam is not a substitute for the in person comprehensive eye exam. Comprehensive in person eye exams are recommended. Please continue hwys-wr-recj in person comprehensive eye exams as well. Please also continue care with your primary doctor and your regular care team providers. We appreciate the opportunity to serve you. Thank you for your service to our country. DEJA VARELA MD [facility] Jul 29, 2023 03:55 PM ADDENDUM: LOCAL TITLE: Addendum STANDARD TITLE: ADDENDUM DATE OF NOTE: JUL 29, 2023@15:55:33 ENTRY DATE: JUL 29, 2023@15:55:35 AUTHOR: DEJA VARELA MD EXP COSIGNER: URGENCY: STATUS: COMPLETED For TECS WFC: It is recommended that the patient return to [facility] Ophthalmology in 4-5 months (sooner prn). Please monitor and if not seen/scheduled as recommended, please work with the patient and clinic staff to help get the patient scheduled to avoid delays in care (and notify TECS reader/s and/or optom/ophtho [id number] if urgent or reader not available). Please also notify TECS reader/s (and/or optom/ophtho [id number] if urgent or reader not available) when clinic notes are available for review. /es/ DEJA VARELA MDservice order clerk Signed: 07/29/2023 15:56 Receipt Acknowledged By: 07/29/2023 16:09 /es/ Fabrizio Carrero, MAYA V23 Virtual Eye Care --- Original Document --- 07/29/23 OPHTHALMOLOGY/OPTOMETRY EYE TECS PROVIDER CONSULT: TECS Cook House Supervisor Note: 07/28/2023 10:29 Local Title: EYE TECS REVENUE CYCLE SPECIALIST Standard Title: TELEHEALTH NOTE Technology-based Eye Care Services (TECS) Cook House Supervisor Note DALTON HOLLY [phone] Telehealth Consent and Patient Identification Verification: Verified patient identity with 2 separate identifiers prior to the beginning of the visit: Yes Patient was informed that their information and images will be uploaded securely to the [facility] computer system and sent to be remotely interpreted by an eye provider. Recommendations/findings will be conveyed to them via phone call, video chat, and/or letter. Yes Patient verbalized understanding and agreed to participate in the [facility] telemedicine eye exam today. Yes [facility] Visit Type: Screening and Vision Assessment: Program [...] of last eye exam: [facility] Type of eye exam: TECS TECS HISTORY & REVIEW OF SYSTEMS No pain, decreased vision, sudden change in flashes or floaters, or sudden onset double vision. DIABETES HISTORY: Last A1c: <<Placeholder for LAST A1C object>> The patient has diabetes Duration of Diabetes: 5-10 years The patient is NOT on insulin EYE DISEASE(S) HISTORY: Tecs Cook House Supervisor 07/29/2022 [facility]-T[facility]S EYE DX-CATARACTS VA-TECS EYE DX-OTHER Lattice OS superiorly EYE PROCEDURE(S) HISTORY: 07/29/2022 [facility]-TECS EYE PROC-LASIK TRAUMA HISTORY: No history of ocular trauma FAMILY HISTORY OTHER: Sibling brother has eye issues, not sure of the specifics though. SOCIAL HISTORY: 07/29/2022 Tecs Tobacco Hx-No EYE MEDICATION(S): No Current Eye Medications REFRACTION AND VISION: scVA: OD: OS: Manifest Refraction (MRx): OD: plano+1.00x37 +1.75 OS: plano+0.93l721 +1.75 Final MRx VA: OD: - OS: FINAL RX Tecs Glauc Tech 07/29/2022 Tecs Refrac-Final Mrx Od Jackson +0.50 x 047 +1.75 add Tecs Refrac-Final Mrx Os +0.25 sphere +1.75 add Additional MRx Information: Final MRx: OD: plano+1.00x37 +1.75 OS: plano+0.22k066 +1.75 Extraocular Movement, Confrontation Visual Ott, Amsler [...] C:D (Cup-to-Disc); CIC (Care In The Community); GYROSCOPIC ENGINEERING TECHNICIAN (Cyclophotocoagulation); CSME (Clinically Significant Macular Edema); DFE [...] MRx (Manifest Refraction); NeoPolyDex/Erythro (Neomycin Polymyxin B Dexamethasone/Erythromycin) ; NFL (Nerve Fiber Layer); NPDR (Nonproliferative Diabetic Retinopathy); OCT (Optical Coherence Tomography); OD (Right Eye); OS (Left Eye); OU (Both Eyes); PDR (Proliferative Diabetic Retinopathy); PFATs (Preservative Free Artificial Tears); RK (Radial Keratotomy); RNFL (Retinal Nerve Fiber Layer); RTC (Return To Clinic); scVA (Visual Acuity Without Correction/Glasses); VALENTINE (Vietnamese Interactive Threshold Algorithm); TID (Three Times Daily); UV (Ultraviolet); VA (Visual Acuity); WRx (Prescription glasses currently worn); WRx VA (Visual Acuity With Prescription Glasses); YAG (Yttrium Aluminum Kronenwetter) Signed by: /rod/ DEJA Trejo [facility] OPHTHALMOLOGY TASHI REVENUE CYCLE SPECIALIST 07/28/2023 10:58 TECS [facility] Note: EXTERNAL PHOTOGRAPH ASSESSMENT: External photo quality adequate for interpretation Findings: Other: OU mild blepharitis, iris freckling/nevi, mild NS; OS: LLL freckle/nevus FUNDUS PHOTOGRAPH INTERPRETATION: Fundus Image Quality: Adequate OPTIC NERVE ASSESSMENT: Cup-to-Disc ratio: OD: 0.45H x 0.425V, +scleral halo and +PPA with pigmentation temporally OS: 0.5H x 0.5V, scleral halo and +PPA Findings: Other: OU Comment: as noted MACULA ASSESSMENT: Findings: Other: OU OD: blur limiting interpretation; OS: pigment mottling RETINA ASSESSMENT: Findings: Other: OU scattered circular changes OU, appear most likely to be artifact OU VESSEL ASSESSMENT: No apparent abnormalities: OU PACHYMETRY INTERPRETATION: OD: 490 OS: 505 OPTICAL COHERENCE TOMOGRAPHY (OCT): OCT Macula: Abnormal: Other/Comments(OCT Macula): OD: very tiny subfoveal ?cystic change (image net [id number]) OS: SN outer retinal undulations ASSESSMENT: Intraocular Pressure(past entry): 07/28/2023 TECS Eye IOP-OD 11 TECS Eye IOP-OS 10 Previous images and studies reviewed; greater than 31 minutes spent in the care of this patient. Comment: 07/30/2022 TECS TECS Exam Shows: Patient evaluated in [facility] (TECS). The TECS visit is not a complete eye exam and is not a substitute for an in person comprehensive eye exam; the TECS exam is limited in scope and cannot rule out pathology that is not imaged or tested for; in-person [id number] eye exams are important and recommended; Diabetes: No diabetic retinopathy OU HgA1C 6.6 on 07/28/2023; on metformin Recommend bg, bp, lipid, weight control, and optimization of cardiovascular status and general health in consultation with PCP; recommend compliance with health care management and routine screening exams with PCP and with eyecare providers Nerve: Other: OU Comment: c/d borderline, thin CCT OU (but s/p Lasik) Recommend f-2-f eval with ophth at [facility], consider baseline gonio and baseline ON OCT Refractive error: s/p Lasik OU Presbyopia OU and astig OU Spectacle Prescription: Not ordered; patient declines; he is happy with his OTC readers and he has sunglasses that he uses for distance when outside; he is aware if he changes his mind and wants prescription readers or sunglasses or transitions, he can call the clinic Mild Cataract (NS) OU: Patient does have some cataract, but they are not currently bothered or interested in surgical intervention; he declines spectacle RX at this time; he reports he does not drive at night or at times when lights could be bothersome to him; if any changes in vision or symptoms, to return to eye clinic/ED; UV protection/sunglasses; no driving and no activities at anytime that vision or any issues could affect ability to do so safely Obstructive sleep apnea: no eye rubbing; if lids become floppy, return to eye clinic for further eval; pres-free tears OU prn; if foreign body sensation, to eye clinic/ER PAPITO Blepharitis OU: warm compresses and lid hygiene OU QHS; pres-free tears OU prn; no eye rubbing Macula (other): ? tiny subfoveal cystic change (vs. artifact) OD on OCT; and some 'undulations' of outer retina OS on OCT; will place [facility] for Retina Consultation Iris freckling/nevi OU: UV protection, sunscreen, hat, sunglasses; routine skin checks with PCP and/or dermatology; routine eye exams with eye care providers; Recommend f-2-f eval with [facility] Ophthalmology (see below) LLL freckle/nevus: appears stable to 07/29/22 TECS imaging; UV protection, sunscreen, hat, sunglasses; routine skin checks with PCP and/or dermatology; routine eye exams with eye care providers; Recommend f-2-f eval with [facility] Ophthalmology (see below) including inspection of palpebral conj Phosphodiesterase type 5 inhibitors (which includes some erectile dysfunction medications including sildenafil) carry risks to vision such as ischemia, vascular occlusion, serous retinal detachment which can result in visual dysfunction, permanent vision loss, blindness; advise patient to strongly consider these risks prior to deciding whether to continue use and recommend they discuss with their PCP/prescribing provider; if patient ever develops any changes in vision, visual symptoms, to eye clinic/ED immediately (same day). 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; RD warnings (see below), if occur, to ED/eye clinic immediately (same day); recommend f-2-f f/u with [facility] Ophthalmology including dilation and periph exam OU FOLLOW-UP: Follow-up Recommendation: In-Person Exam with [facility] Ophthalmology (see above) for comprehensive ophth exam with SLE, DFE, consider baseline gonio, OCT, and repeat mac OCT Within 4-5 months (sooner prn): November to December 28, 2023 TECS Evaluation: Other: November mac and ON OCTs DISPOSITION: Result letter will be sent to the patient and includes follow-up recommendation/s and the phone number to reach the Eye Clinic, and encourages patient to review this note through my [facility] and call if any questions/symptoms. Please include in mailing of patient letter the educational handouts on: amsler, diabetes, cataract, blepharitis, erectile dysfunction medication RTC orders to [facility] Ophth 4-5 months and TECS 16 months placed as indicated per protocol. I spoke with the patient, verified patient identity with 2 separate identifiers, and we reviewed the findings and plan, all the patient's questions were asked and answered. The patient verbalized understanding of the care plan. He is aware if he develops new floaters or change in floaters (he has had floaters for years, not new), flashes, curtains, change in vision, any problems or symptoms, he must return to eye clinic (or to ED if after hours) immediately (same day). Treatment plan: The patient consented to the recommended treatment plan. Telehealth encounter completed by remote provider at [facility]: [facility] Greater than 31 minutes of time spent in the care of this patient. Appendix (abbreviations): AC (Anterior Chamber); AREDS (Age Related Eye Disease Study); ARX (Auto Refraction); BID (Two Times Daily); C:D (Cup-to-Disc); CIC (Care In The Community); GYROSCOPIC ENGINEERING TECHNICIAN (Cyclophotocoagulation); CSME (Clinically Significant Macular Edema); DFE [...] MRx (Manifest Refraction); NeoPolyDex/Erythro (Neomycin Polymyxin B Dexamethasone/Erythromycin) ; NFL (Nerve Fiber Layer); NPDR (Nonproliferative Diabetic Retinopathy); OCT (Optical Coherence Tomography); OD (Right Eye); OS (Left Eye); OU (Both Eyes); PDR (Proliferative Diabetic Retinopathy); PFATs (Preservative Free Artificial Tears); RK (Radial Keratotomy); RNFL (Retinal Nerve Fiber Layer); RTC (Return To Clinic); scVA (Visual Acuity Without Correction/Glasses); VALENTINE (Vietnamese Interactive Threshold Algorithm); TID (Three Times Daily); UV (Ultraviolet); VA (Visual Acuity); WRx (Prescription glasses currently worn); WRx VA (Visual Acuity With Prescription Glasses); YAG (Yttrium Aluminum Kronenwetter) /rod/ DEJA VARELA MDservice order clerk Signed: 07/29/2023 15:55 Receipt Acknowledged By: * AWAITING SIGNATURE * LAVELLE BORDEN * AWAITING SIGNATURE * MARYBEL LAO * AWAITING SIGNATURE * FABRIZIO CARRERO * AWAITING SIGNATURE * DEJA SEO 07/29/2023 ADDENDUM STATUS: COMPLETED [facility] placed for Retina eval of macular OCTs. /lora VARELA MDservice order clerk Signed: 07/29/2023 16:02 DEJA VARELA MD [facility] Jul 29, 2023 03:06 PM TELEHEALTH NOTE: LOCAL TITLE: OPHTHALMOLOGY/OPTOMETRY EYE TECS PROVIDER CONSULT STANDARD TITLE: TELEHEALTH NOTE DATE OF NOTE: JUL 29, 2023@15:06 ENTRY DATE: JUL 29, 2023@15:06:27 AUTHOR: DEJA VARELA MD EXP COSIGNER: URGENCY: STATUS: COMPLETED OPHTHALMOLOGY/OPTOMETRY EYE TECS PROVIDER CONSULT Has ADDENDA TECS Cook House Supervisor Note: 07/28/2023 10:29 Local Title: EYE TECS REVENUE CYCLE SPECIALIST Standard Title: TELEHEALTH NOTE Technology-based Eye Care Services (TECS) Cook House Supervisor Note DALTON HOLLY [phone] Telehealth Consent and Patient Identification Verification: Verified patient identity with 2 separate identifiers prior to the beginning of the visit: Yes Patient was informed that their information and images will be uploaded securely to the [place] computer system and sent to be remotely interpreted by an eye provider. Recommendations/findings will be conveyed to them via phone call, video chat, and/or letter. Yes Patient verbalized understanding and agreed to participate in the [facility] telemedicine eye exam today. Yes [facility] Visit Type: Screening and Vision Assessment: Program [...] of last eye exam: [facility] Type of eye exam: TECS TECS HISTORY & REVIEW OF SYSTEMS No pain, decreased vision, sudden change in flashes or floaters, or sudden onset double vision. DIABETES HISTORY: Last A1c: <<Placeholder for LAST A1C object>> The patient has diabetes Duration of Diabetes: 5-10 years The patient is NOT on insulin EYE DISEASE(S) HISTORY: Tecs Cook House Supervisor 07/29/2022 VA-TECS EYE DX-CATARACTS VA-TECS EYE DX-OTHER Lattice OS superiorly EYE PROCEDURE(S) HISTORY: 07/29/2022 VA-TECS EYE PROC-LASIK TRAUMA HISTORY: No history of ocular trauma FAMILY HISTORY OTHER: Sibling brother has eye issues, not sure of the specifics though. SOCIAL HISTORY: 07/29/2022 Tecs Tobacco Hx-No EYE MEDICATION(S): No Current Eye Medications REFRACTION AND VISION: scVA: OD: -3 OS: -3 Manifest Refraction (MRx): OD: plano+1.00x37 +1.75 OS: plano+0.16g309 +1.75 Final MRx VA: OD: -2 OS: FINAL RX Tecs Glauc Tech 07/29/2022 Tecs Refrac-Final Mrx Od Jackson +0.50 x 047 +1.75 add Tecs Refrac-Final Mrx Os +0.25 sphere +1.75 add Additional MRx Information: Final MRx: OD: plano+1.00x37 +1.75 OS: plano+0.78t697 +1.75 Extraocular Movement, Confrontation Visual Ott, Amsler Grid and Color Vision: Extraocular Movement: OU: Full Confrontation Visual Field: OU: Full Rx Comments: Patient has been happy using reading glasses only PACHYMETRY: Pachymetry Past Results: No data available PACHYMETRY OD: 490 OS: 505 INTRAOCULAR PRESSURE (IOP): Method: Date/Time: Jul 28,2024@10:41 Rebound Tonometer OD: 11 OS: 10 PUPILS/ANTERIOR [...] C:D (Cup-to-Disc); CIC (Care In The Community); GYROSCOPIC ENGINEERING TECHNICIAN (Cyclophotocoagulation); CSME (Clinically Significant Macular Edema); DFE [...] MRx (Manifest Refraction); NeoPolyDex/Erythro (Neomycin Polymyxin B Dexamethasone/Erythromycin) ; NFL (Nerve Fiber Layer); NPDR (Nonproliferative Diabetic Retinopathy); OCT (Optical Coherence Tomography); OD (Right Eye); OS (Left Eye); OU (Both Eyes); PDR (Proliferative Diabetic Retinopathy); PFATs (Preservative Free Artificial Tears); RK (Radial Keratotomy); RNFL (Retinal Nerve Fiber Layer); RTC (Return To Clinic); scVA (Visual Acuity Without Correction/Glasses); VALENTINE (Vietnamese Interactive Threshold Algorithm); TID (Three Times Daily); UV (Ultraviolet); VA (Visual Acuity); WRx (Prescription glasses currently worn); WRx VA (Visual Acuity With Prescription Glasses); YAG (Yttrium Aluminum Kronenwetter) Signed by: /rod/ DEJA Trejo [facility] OPHTHALMOLOGY TASHI REVENUE CYCLE SPECIALIST 07/28/2023 10:58 TECS [facility] Note: EXTERNAL PHOTOGRAPH ASSESSMENT: External photo quality adequate for interpretation Findings: Other: OU mild blepharitis, iris freckling/nevi, mild NS; OS: LLL freckle/nevus FUNDUS PHOTOGRAPH INTERPRETATION: Fundus Image Quality: Adequate OPTIC NERVE ASSESSMENT: Cup-to-Disc ratio: OD: 0.45H x 0.425V, +scleral halo and +PPA with pigmentation temporally OS: 0.5H x 0.5V, scleral halo and +PPA Findings: Other: OU Comment: as noted MACULA ASSESSMENT: Findings: Other: OU OD: blur limiting interpretation; OS: pigment mottling RETINA ASSESSMENT: Findings: Other: OU scattered circular changes OU, appear most likely to be artifact OU VESSEL ASSESSMENT: No apparent abnormalities: OU PACHYMETRY INTERPRETATION: OD: 490 OS: 505 OPTICAL COHERENCE TOMOGRAPHY (OCT): OCT Macula: Abnormal: Other/Comments(OCT Macula): OD: very tiny subfoveal ?cystic change (image net [id number]) OS: SN outer retinal undulations ASSESSMENT: Intraocular Pressure(past entry): 07/28/2023 TECS Eye IOP-OD 11 TECS Eye IOP-OS 10 Previous images and studies reviewed; greater than 31 minutes spent in the care of this patient. Comment: 07/30/2022 TECS TECS Exam Shows: Patient evaluated in [facility] Care Services (TECS). The TECS visit is not a complete eye exam and is not a substitute for an in person comprehensive eye exam; the TECS exam is limited in scope and cannot rule out pathology that is not imaged or tested for; in-person [id number] eye exams are important and recommended; Diabetes: No diabetic retinopathy OU HgA1C 6.6 on 07/28/2023; on metformin Recommend bg, bp, lipid, weight control, and optimization of cardiovascular status and general health in consultation with PCP; recommend compliance with health care management and routine screening exams with PCP and with eyecare providers Nerve: Other: OU Comment: c/d borderline, thin CCT OU (but s/p Lasik) Recommend f-2-f eval with ophth at [facility], consider baseline gonio and baseline ON OCT Refractive error: s/p Lasik OU Presbyopia OU and astig OU Spectacle Prescription: Not ordered; patient declines; he is happy with his OTC readers and he has sunglasses that he uses for distance when outside; he is aware if he changes his mind and wants prescription readers or sunglasses or transitions, he can call the clinic Mild Cataract (NS) OU: Patient does have some cataract, but they are not currently bothered or interested in surgical intervention; he declines spectacle RX at this time; he reports he does not drive at night or at times when lights could be bothersome to him; if any changes in vision or symptoms, to return to eye clinic/ED; UV protection/sunglasses; no driving and no activities at anytime that vision or any issues could affect ability to do so safely Obstructive sleep apnea: no eye rubbing; if lids become floppy, return to eye clinic for further eval; pres-free tears OU prn; if foreign body sensation, to eye clinic/ER PAPITO Blepharitis OU: warm compresses and lid hygiene OU QHS; pres-free tears OU prn; no eye rubbing Macula (other): ? tiny subfoveal cystic change (vs. artifact) OD on OCT; and some 'undulations' of outer retina OS on OCT; will place [facility] for Retina Consultation Iris freckling/nevi OU: UV protection, sunscreen, hat, sunglasses; routine skin checks with PCP and/or dermatology; routine eye exams with eye care providers; Recommend f-2-f eval with [facility] Ophthalmology (see below) LLL freckle/nevus: appears stable to 07/29/22 TECS imaging; UV protection, sunscreen, hat, sunglasses; routine skin checks with PCP and/or dermatology; routine eye exams with eye care providers; Recommend f-2-f eval with [facility] Ophthalmology (see below) including inspection of palpebral conj Phosphodiesterase type 5 inhibitors (which includes some erectile dysfunction medications including sildenafil) carry risks to vision such as ischemia, vascular occlusion, serous retinal detachment which can result in visual dysfunction, permanent vision loss, blindness; advise patient to strongly consider these risks prior to deciding whether to continue use and recommend they discuss with their PCP/prescribing provider; if patient ever develops any changes in vision, visual symptoms, to eye clinic/ED immediately (same day). 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; RD warnings (see below), if occur, to ED/eye clinic immediately (same day); recommend f-2-f f/u with [facility] Ophthalmology including dilation and periph exam OU FOLLOW-UP: Follow-up Recommendation: In-Person Exam with [facility] Ophthalmology (see above) for comprehensive ophth exam with SLE, DFE, consider baseline gonio, OCT, and repeat mac OCT Within 4-5 months (sooner prn): November to December 28, 2023 TECS Evaluation: Other: November mac and ON OCTs DISPOSITION: Result letter will be sent to the patient and includes follow-up recommendation/s and the phone number to reach the Eye Clinic, and encourages patient to review this note through my [facility]et and call if any questions/symptoms. Please include in mailing of patient letter the educational handouts on: amsler, diabetes, cataract, blepharitis, erectile dysfunction medication RTC orders to [facility] Ophth 4-5 months and TECS 16 months placed as indicated per protocol. I spoke with the patient, verified patient identity with 2 separate identifiers, and we reviewed the findings and plan, all the patient's questions were asked and answered. The patient verbalized understanding of the care plan. He is aware if he develops new floaters or change in floaters (he has had floaters for years, not new), flashes, curtains, change in vision, any problems or symptoms, he must return to eye clinic (or to ED if after hours) immediately (same day). Treatment plan: The patient consented to the recommended treatment plan. [facility] Greater than 31 minutes of time spent in the care of this patient. Appendix (abbreviations): AC (Anterior Chamber); AREDS (Age Related Eye Disease Study); ARX (Auto Refraction); BID (Two Times Daily); C:D (Cup-to-Disc); CIC (Care In The Community); GYROSCOPIC ENGINEERING TECHNICIAN (Cyclophotocoagulation); CSME (Clinically Significant Macular Edema); DFE [...] MRx (Manifest Refraction); NeoPolyDex/Erythro (Neomycin Polymyxin B Dexamethasone/Erythromycin) ; NFL (Nerve Fiber Layer); NPDR (Nonproliferative Diabetic Retinopathy); OCT (Optical Coherence Tomography); OD (Right Eye); OS (Left Eye); OU (Both Eyes); PDR (Proliferative Diabetic Retinopathy); PFATs (Preservative Free Artificial Tears); RK (Radial Keratotomy); RNFL (Retinal Nerve Fiber Layer); RTC (Return To Clinic); scVA (Visual Acuity Without Correction/Glasses); VALENTINE (Vietnamese Interactive Threshold Algorithm); TID (Three Times Daily); UV (Ultraviolet); VA (Visual Acuity); WRx (Prescription glasses currently worn); WRx VA (Visual Acuity With Prescription Glasses); YAG (Yttrium Aluminum Kronenwetter) /rod/ DEJA VARELA MDservice order clerk Signed: 07/29/2023 15:55 Receipt Acknowledged By: 07/30/2023 09:09 /rod/ LAVELLE [facility] CRACKING AND FANNING MACHINE OPERATOR 08/05/2023 11:34 /rod/ MARYBEL LAO TRIMMING CUTTER MACHINE 07/29/2023 16:12 /rod/ MAYA Osorio V23 [facility] 07/31/2023 08:16 /lora SEO OPHTHALMOLOGY TASHI REVENUE CYCLE SPECIALIST 07/29/2023 ADDENDUM STATUS: COMPLETED For TECS WFC: It is recommended that the patient return to [facility] Ophthalmology in 4-5 months (sooner prn). Please monitor and if not seen/scheduled as recommended, please work with the patient and clinic staff to help get the patient scheduled to avoid delays in care (and notify TECS reader/s and/or optom/ophtho [id number] if urgent or reader not available). Please also notify TECS reader/s (and/or optom/ophtho [id number] if urgent or reader not available) when clinic notes are available for review. /lora VARELA MDservice order clerk Signed: 07/29/2023 15:56 Receipt Acknowledged By: 07/29/2023 16:09 /rod/ MAYA Osorio V23 [facility] 07/29/2023 ADDENDUM STATUS: COMPLETED [facility] placed for Retina eval of macular OCTs. /loar VARELA MDservice order clerk Signed: 07/29/2023 16:02 08/17/2023 ADDENDUM STATUS: COMPLETED Please note patient is scheduled for f/u with [facility] Oph December 01, 2023. /lora VARELA MDservice order clerk Signed: 08/17/2023 10:43 12/03/2023 ADDENDUM STATUS: COMPLETED completed f2f ophthalmology at [facility]. Notes in CPRS for review. Alerting TECS provider for awareness. /lora Gunn [facility] REVENUE CYCLE SPECIALIST OPHTHALMOLOGY Signed: 12/03/2023 13:24 Receipt Acknowledged By: 12/07/2023 12:16 /lora VARELA MDservice order clerk 12/07/2023 ADDENDUM STATUS: COMPLETED Patient was seen by [facility] Oph on 12/01/23 (see notes for details) and they placed RTCs for him to return to see them in one year. /lora VARELA MDservice order clerk Signed: 12/07/2023 12:14 12/07/2023 ADDENDUM STATUS: COMPLETED Please note, [facility] consult was done on 08/03/23 (see note for details) and patient has had subsequent f/u with [facility] Ophth on 12/01/23 and [facility] Ophth has placed RTCs for the patient to return to them in one year. /es/ DEJA VARELA MDservice order clerk Signed: 12/07/2023 12:16 DEJA VAERLA MD [facility]
--- OUTSIDE RECORDS SUMMARY | 2023-12-10 06:53 | XMS_ITS | Clinical Summary ---
Author Name Unknown Organization [email or web address] Address [place], [place] [address] Care Team Providers Care Supervisor Scrap Preparation Name Role Phone [place], [place] Primary Care Provider [phone] Allergies No known active allergies Medications Medication Sig Dispensed Refills Start Date End Date Status aspirin (ECOTRIN) 81 mg enteric coated tabletIndications: Type 2 diabetes mellitus without complication, without long-term current use of insulin (HC) Take 1 tablet by mouth once daily with a meal. 0 08/17/2019 Active docosahexaenoic acid/epa (FISH OIL ORAL) Take 1,200 mg by mouth once daily. 04/24/2020 Active cyanocobalamin (VITAMIN B12) 100 mcg tablet Take 1,500 mcg by mouth once daily. 04/24/2020 Active ZINC SULFATE ORAL Take 10 mg by mouth once daily. 04/24/2020 Active metFORMIN (GLUCOPHAGE) 1,000 mg tablet 1,500 mg. 07/28/2023 Active atorvastatin (LIPITOR) 40 mg tablet Take 40 mg by mouth at bedtime. 07/28/2023 Active sildenafil citrate (VIAGRA) 25 mg tablet 25 mg. 07/28/2023 Active metFORMIN (GLUCOPHAGE) 1,000 mg tablet Take 500 mg by mouth 2 times daily with meals. 10/23/2020 11/26/2023 Discontinued( *Med complete/Yoselyn men complete/Leve l of care change) atorvastatin (LIPITOR) 80 mg tablet Take 0.5 Tablets by mouth at bedtime. 10/23/2020 11/26/2023 Discontinued( *Med complete/Yoselyn men complete/Leve l of care change) Active Problems Problem Noted Date Diagnosed Date Hyperplastic colonic polyp 06/24/2021 Diabetic peripheral neuropat hy associated with type 2 diabetes mellitus 06/24/2021 Obstructive sleep apnea of adult 08/17/2019 Overview: On CPAP since 2018 Encounter for immunization 05/04/2013 Overview: Colonoscopy 04/2013 normal repeat in 10 years Colonoscopy 09/2021 TA, repeat in 7 years Type 2 diabetes mellitus without complications 0 04/19/2013 Overview: Dx 03/2013 Chest pain, unspecified 01/22/2011 Hyperlipidemia 09/28/2007 OBESITY 09/28/2007 Resolved Problems Problem Noted Date Diagnosed Date Resolved Date Prediabetes 04/19/2013 09/28/2015 Encounters Date Type Department Care Team Description 11/26/2023 7:15 AM CDT Preop Visit [facility] [address] [place] [address] Jessie Hall, Preoperative Exam (12/09 - [facility] - Dr. Leija - LEFT shoulder - torn tendons ) 11/26/2023 Travel from Last 3 Months Immunizations Name Administration Dates Next Due COVID-19 vaccine ([employer]-Fitfully 30mcg/0.3mL) TOMY CHAPARRO 04/30/2021,10/05/2020,09/14/2020 Hepatitis A (Adult) 03/12/2009,06/26/2006 Influenza, High-dose Inactivated 09/02/2017 Influenza, Inactivated AIIV4 (Age 65+ Years) Preserv Free 07/29/2022 Influenza, Inactivated IIV3 (Age 65+ Years) Preserv Free 05/10/2019 Pneumococcal Poly,23-Valent (Pneumovax) 07/12/20 19 Pneumococcal conj 13-Valent (Prevnar 13) 019,01/12/2018 Td (Age >=7 Years) 07/12/2019,06/26/2006 Tdap 04/19/2013,07/27/2009 Typhoid (injectable) 06/26/2006 Zoster (Shingrix-RZV, recombinant) 09/20/2018, Zoster (Zostavax-ZVL, live) 07/27/2013, 3 Family History Medical History Relation Name Comments Good Health Brother 1 Good Health Brother 2 Cancer Father pancreas CA d 6 9 yo Stroke Father TIA at 57 Cancer Mother d 79 yo lung CA Good Health Sister Relation Name Status Comments Brother 1 Brother 2 Father Mother Sister Social History Tobacco Use Types Packs/Day Years Used Date Smoking Tobacco: Never Smokeless Tobacco: Never Tobacco Cessation:Counseling Given: Yes Alcohol Use Standard Drinks/Week Comments Yes 3.3 (1 standard drink = 0.6 oz p ure alcohol) moderate 4/week PHQ-2 Answer Date Recorded PHQ-2 TOTAL SCORE 1 06/24/2021 Social Connections Answer Date Recorded Frequency of Communication with Friends and Fami ly Not on file 07/07/2023 Financial Resource Strain Answer Date R ecorded Difficulty of Paying Living Expenses 3 06/30/2022 Difficulty of Paying Living Expenses Not on file 06/30/2022 Food Insecurity Answer Date Recorded Worried About Running Out of Food in the Last Ye ar 1 06/30/2022 Transportation Needs Answer Date Record ed Lack of Transportation (Medical) 1 06/30/2022 Housing Stability Answer Date Recorded Unable to Pay for Housing in the Last Year 1 06/30/2022 Sex and Gender Information Value Date Recorded Sex Assigned at Male 05/31/2021 5:23 PM CDT Gender Identity Male 05/31/2021 5:23 PM CDT Sexual Orientation Not on file Obstetrics History Last Filed Vital Signs Vital Sign Reading Time Taken Comments Blood Pressure 151/81 11/26/2023 7:23 AM CDT rec heck Pulse 70 11/26/2023 7:22 AM CDT Temperature 37.4 ??C (99.4 ??F) 01/07/2022 1:55 PM CD T Respiratory Rate 12 01/07/2022 1:55 PM CDT Oxygen Saturation 98% 11/26/2023 7:22 AM CDT Inhaled Oxygen Concentration - - Weight 92.4 kg (203 lb 11.2 oz) 11/26/2023 7:22 AM CDT Height 172 cm (5' 7.72) 11/26/2023 7:22 AM CDT Body Mass Index 31.23 11/26/2023 7:22 AM CDT Plan of Treatment Health Maintenance Due Date Last Done Comments Hepatitis C screening for ag e 18-79 1970 Lipids for age 45-75 09/25/2020 09/26/2015, 04/19/2013, 04/14/2012, Additional history exists Depression screening for age 12+ 06/24/2022 06/24/2021, 06/24/2021, 08/17/2019, Additional history exists Medicare Wellness for age 65+ 06/25/2022 06/24/2021, 08/17/2019 COVID-19 vaccine series ( season) 2023 07/29/2022, 04/30/2021, 10/05/2020, Additional history exists Influenza for age 65+ 03/27/2024 07/29/2022 , 05/10/2019, 09/02/2017 BMI (ht and wt on same day) for age 18+ 11/25/2024 11/26/2023, 01/07/2022, 06/24/2021, Additional history exists Colonoscopy through age 75 10/16/202810/16, 10/16/2021, 10/16/2021, Additional history exists Tetanus booster 07/12/2029 07/12/2019, 03/28, 07/27/2009, Additional history exists Tdap Completed 04/19/2013, 07/27/2009 Zoster (shingles) series for age 50+ Completed 09/20/2018, 06/29/2018, 07/27/2013, Additional history exists Pneumococcal series for age 65+ Completed 07/14/2019, 07/12/2019, 01/12/2018 Procedures Procedure Name Priority Date/Time Associated Diagnosis Comments COLONOSCOPY SCREENING Routine 10/16/2021 10:27 AM CDT Screen for colon cancer LIPID PANEL W REFLEX MEASURED LDL Routine 09/26/2015 8:00 AM [facility] HYPERLIPIDEMIA MIXED from Last 3 Months or Most Recently Relevant to Health Maintenance Results * COLONOSCOPY (10/16/2021 10:40 AM CDT) 10/16/2021 10:4 0 AM CDT Narrative Transcriptions George Wyamn MD - 10/16/2021 11:23 AM CDT Patient Name: Omid Ramírez Procedure Date: 10/16/2021 Gender: Male Date of : 1950 Admit Type: Outpatient Procedure: Colonoscopy Proceduralist: George Wyman MD , Neva Walton RN(Nurse) Referring MD: Ken Ramirez Indications/Pre-Op Diagnosis: Screening for colorectal malignant neoplasm, Last colonoscopy: April 2013 Medications: Fentanyl 100 micrograms IV, Midazolam 2 mgIV, The level of sedation administered wasmoderate Procedure Description: The patient had risks, benefits and alternatives explained to andgave informed consent. The patient had a stable cardiopulmonary status and judged an adequate candidate for conscious sedation. The colonoscope was passed through the anus and advanced to thececum, identified by appendiceal orifice and ileocecal valve. Thecolonoscopy was performed without difficulty. The patient tolerated the procedure well. The quality of the bowel preparation was good. The ileocecal valve, appendiceal orifice, and rectum were photographed. Complications: No immediate complications. Estimated Blood Loss & Specimen: Estimated blood loss: none. Specimen collected - Yes and sent to Laboratory Findings: Skin tags were found on perianal exam. A 2 mm polyp was found in the cecum. The polyp was sessile. The polyp was removed with a cold biopsy forceps. Resection and retrieval were complete. A 3 mm polyp was found in the ascending colon. The polyp was sessile. The polyp was removed with a cold snare. Resection and retrieval were complete. Scattered small and large-mouthed diverticula were found in thesigmoid colon and descending colon. The exam was otherwise without abnormality on direct and retroflexion views. Impressions/Post-Op Diagnosis: - Perianal skin tags found on perianal exam. - One 2 mm polyp in the cecum, removed with a cold biopsy forceps. Resected and retrieved. - One 3 mm polyp in the ascending colon, removed with a cold snare. Resected and retrieved. - Diverticulosis in the sigmoid colon and in the descending colon. - The examination was otherwise normal on direct and retroflexionviews. Recommendation: - Patient has a contact number available for emergencies. The signsand symptoms of potential delayed complications were discussed with the patient. Return to normal activities tomorrow. Written discharge instructions were provided to the patient. - Resume previous diet. - Continue present medications. - Await pathology results. - Repeat colonoscopy is recommended. The colonoscopy date will be determined after pathology results from today's exam become available for review. Moderate Sedation: Moderate (conscious) sedation was administered by the endoscopy nurse and supervised by the endoscopist. The following parameters were monitored: oxygen saturation, heart rate, respiratory rate, blood pressure, adequacy of pulmonary ventilation and reponse to care. Please refer to the patient's medical record flowsheets and nursing notes for moderate sedation details. Total physician intraservice time was 15 minutes. George Wyman MD 10/16/2021 11:22:48 AM This report has been signed electronically. Note Initiated On: 10/16/2021 10:40 AM Procedure Code(s): --- Professional --- 23481, Colonoscopy, flexible; with removalof tumor(s), polyp(s), or other lesion(s) bysnare technique 14917, 59, Colonoscopy, flexible; withbiopsy, single or multiple Diagnosis Code(s): --- Professional --- Z12.11, Encounter for screening formalignant neoplasm of colon K63.5, Polyp of colon K64.4, Residual hemorrhoidal skin tags K57.30, Diverticulosis of large intestine without perforation or abscess withoutbleeding CPT copyright 2020 [employer]. All rights reserved. The codes documented in this report are preliminary and upon stiff leg operator reviewmay be revised to meet current compliance requirements. Scope In: 10:57:34 AM Scope Withdrawal Time 0 hours 8 minutes 4 seconds Scope Out: 11:11:44 AM George Wyman MD PROCEDURE ORD * (ABNORMAL) LIPID PANEL W REFLEX MEASURED LDL (09/26/2015 8:00 AM [facility]) CHOLESTEROL,TOTAL 256(H) 100 - 199 mg/dL 09/26/2015 8:29 AM [facility] TRIGLYCERIDES 223(H) <150 mg/dL 09/26/2015 8:29 AM [facility] HDL CHOLESTEROL 47 >40 mg/dL 09/26/2015 8:29 AM [facility] NON-HDL CHOLESTEROL 209(H) <145 mg/dl 09/26/2015 8:29 AM [facility] CHOL/HDL RATIO 5.45(H) <4.50 09/26/2015 8:29 AM [facility] LDL CHOLESTEROL 164(H) <=130 mg/dL 09/26/2015 8:29 AM [facility] PATIENT STATUS FASTING 09/26/2015 8:29 AM [facility] Blood specimen (specimen) BLOOD SPECIMEN / Unknown Venipuncture / Unknown 09/26/2015 8:00 AM [facility] 09/26/2015 8:00 AM [facility] Ken Ramirez MD CHEMISTRY [facility] [address] [place] [address], from Last 3 Months or Most Recently Relevant to Health Maintenance Care Teams Supervisor Scrap Preparation Relationship Specialty Start Date End Date [place], [place] [address] [place] [phone] PCP - General 07/09/23
[2023-12-10] MEDS: OXYCODONE (CR) 10 MG TAB.ER.12H PO (07:30)
[2023-12-10] MEDS: CELECOXIB 200 MG CAPSULE PO (07:30)
[2023-12-10] MEDS: ACETAMINOPHEN 500 MG TABLET 1000 MG PO (07:30)
[2023-12-10] MEDS: LACTATED RINGERS 1000 ML 1,000 ML 100 ML IV ×2 (07:50→11:18)
[2023-12-10] MEDS: MIDAZOLAM HCL 1 MG/ML inj IVP (08:36)
[2023-12-10] MEDS: fentaNYL 100 MCG/2 ML inj IVP (08:36)
--- NOTE | 2023-12-10 08:42 | SUR.PREOP ---
TIME?OUT:?0836 PT/RN/MDA?VERIFICATION?OF?SURGICAL?SITE,?PROCEDURE,?AND?CONSENT OBTAINED?PRIOR?TO?INVASIVE?PROCEDURE.
[2023-12-10] MEDS: EPINEPHrine 1 MG in SODIUM CHLORIDE IRRIG SOLUTION 3,000 ML 9003 MG IRRIGATION ×2 (09:55→10:30)
--- NOTE | 2023-12-10 10:36 | PM.ORPRC ---
Procedure Note Date of procedure: 12/10/23 Procedure: PREOPERATIVE DIAGNOSIS: Left shoulder rotator cuff tear, AC joint arthrosis POSTOPERATIVE DIAGNOSIS: Left shoulder rotator cuff tear, AC joint arthrosis, degenerative labral tearing NAME OF OPERATION: Left shoulder arthroscopic subacromial decompression, distal clavicle excision, mini open rotator cuff repair, limited glenohumeral joint debridement SURGEON: Antwon Leija MD CARDIAC CATH TECHNICIAN: LUCY Johansen ANESTHESIA: Supraclavicular block plus general endotracheal ESTIMATED BLOOD LOSS: 5 mL COMPLICATIONS: None SPECIMENS: None DRAINS: None PREOPERATIVE ANTIBIOTICS: Ancef 2 grams INDICATIONS: The patient is a 73-year-old with a history of left shoulder pain secondary to the above diagnoses. Despite appropriate non operative management, they continue to have symptoms. Operative intervention was recommended. The risks, benefits and expected outcomes were discussed in detail. These included but were not limited to: Infection, bleeding, injury to blood vessel or nerve, venous thromboembolism. All questions were answered to their satisfaction. PROCEDURE: A supraclavicular block was placed by Anesthesia. General anesthesia was administered. The patient was placed in the high beach chair position. The left shoulder was prepped and draped in the usual sterile fashion. The glenohumeral joint was infiltrated with 20 mL of normal saline with epinephrine. The posterior portal was established, the arthroscope was introduced. The anterior portal was established, Diagnostic arthroscopy was performed with findings as follows: The biceps and biceps anchor are intact. The anterior, posterior superior labrum have age-appropriate degenerative tearing. Articular surfaces on the humeral head and glenoid are normal. There are no loose bodies. There is a full-thickness tear of the supraspinatus. The anterior, superior and posterior labrum was debrided with the shaver. The arthroscope was placed in the subacromial space, the lateral portal was established. The Arthrex [place] was used to dissect the acromion free. The CA ligament was recessed off the anterior acromion, the AC joint was exposed. The acromioplasty was performed with the bur in the posterior portal. The bur was then placed in the lateral portal and the lateral and anterior aspect of the acromion were resected. The undersurface of the distal clavicle was resected through the lateral portal. Finally, the bur was placed in the anterior portal and the remainder of the distal clavicle was resected for a total of 10 mm. An accessory anterolateral portal was placed. The subacromial/subdeltoid bursa was aggressively debrided. There is a full-thickness tear of the supraspinatus. Arthroscopic instruments were removed. The accessory anterolateral portal was extended proximally and distally, subcutaneous dissection was taken with electrocautery to the deltoid. The deltoid was divided in line with its fibers. The static retractor was placed. The subacromial/subdeltoid bursa was debrided with the Priest scissors. The greater tuberosity was debrided to punctate bleeding bone using the arthroscopic bur. Two Arthrex Bio[employer]posite SwiveLock anchors were placed just off the articular surface. Both limbs of the FiberWire and fiber tape were passed using the scorpion. A fiber link was placed in the leading edge of the rotator cuff x2. We tied the 2 central FiberWire sutures over the rotator cuff. We then proceeded with a lateral row of SwiveLock anchors x 2 crossing the FiberTape and incorporating the FiberWire and fiber link into each lateral row anchor. The suture on the eyelet in each of the lateral row anchors was passed through the leading edge of the rotator cuff both anteriorly and posteriorly, tied is a simple knot. This provides an anatomic, watertight repair of the rotator cuff. There is no tension on the repair with the shoulder at 0? abduction. The wound was irrigated with normal saline off the pump. The deltoid was repaired with an 0 Vicryl in an interrupted [id number] fashion. Subcutaneous tissues were closed with a 3-0 Vicryl. Skin was closed with a 3-0 Monocryl in a subcuticular fashion. A dry dressing and sling were applied. Sponge and needle counts were correct x2. The patient tolerated the procedure well. There were no apparent complications. They were carefully transferred to the hospital bed and taken to the postanesthesia care unit in satisfactory condition. PLAN: The patient will be discharged to home. No active range of motion of the shoulder will be allowed for 6 weeks postoperatively. They can work on active range of motion of the elbow, wrist and fingers. They will follow up in the office next week for a wound check and an AP and transscapular Y-view of the shoulder prior to being seen.
--- NOTE | 2023-12-10 11:25 | W.ANESCHARGE ---
Anesthesia Charges Start Date/Time Anesthesia Start Date: 12/10/23 Anesthesia Start Time: 09:02 Stop Date/Time Anesthesia Stop Date: 12/10/23 Anesthesia Stop Time: 10:57 Summary Extremes of Age - Over 70 or under 1: CLINICAL SERVICES CONSULTANT
--- NOTE | 2023-12-10 12:47 | W.PM.NB ---
Nerve Block Nerve Block Time Seen by Provider: 08:38 Date Seen: 12/10/23 Type of block requested by surgeon for post-operative analgesia: supraclavicular Side: left Time out performed: Yes Verification of patient name: Yes Verification of date of : Yes Site marking: site marked Name of person performing procedure: Constantino Continuous monitoring Was continuous monitoring of O2 sat, B/P, quality assurance monitor, recorded every 15 minutes?: Yes Procedure Checklist: sterile prep, needles and gloves Ultrasound guided. Images saved: Yes Medications given in 5ml increments after negative aspiration: Ropivicaine %: 0.5 mL: 20 Needle gauge: 22 Decadron (mg): 10 Precedex (mcg): 25 Patient tolerated procedure well: Yes Block Charges Block Charge (with Pro Fee): Brachial Plexus Use of Ultrasound Machine for Block: Yes- US Guidance/pain block
--- NOTE | 2023-12-10 12:47 | W.ANESCHARGE ---
Anesthesia Charges Start Date/Time Anesthesia Start Date: 12/10/23 Anesthesia Start Time: 09:02 Stop Date/Time Anesthesia Stop Date: 12/10/23 Anesthesia Stop Time: 10:57 Summary Extremes of Age - Over 70 or under 1: MDA
== END 2023-12-10 13:09 | disposition home or self-care (01) ==
LOC: OR 06:51
PROVIDERS: Visit Provider Orthopaedic Surgery
PROC: (CPT 23412; principal; 2023-12-10 09:00)
DX: M75.102 Unspecified rotator cuff tear or rupture of left shoulder, not specified as traumatic (principal); M19.012 Primary osteoarthritis, left shoulder; S43.432A Superior glenoid labrum lesion of left shoulder, initial encounter; G89.18 Other acute postprocedural pain; E66.9 Obesity, unspecified; G47.33 Obstructive sleep apnea (adult) (pediatric); E11.42 Type 2 diabetes mellitus with diabetic polyneuropathy
CPT/HCPCS: 29826; 29824; 29822; 23412; 01630; 64415; 76942; 82962; 99100; A9270; C1713; J0171; J0330; J1100; J2250; J2371; J2405; J2704; J2795; J3010; J7120; L3670

== ENCOUNTER 2024-04-11 15:15 | Outpatient (RCR) | payer MEDICARE, BC, SELFPAY ==
--- NOTE | 2023-12-22 10:56 | PT.OPEX ---
PT [place] Out[facility] Eval PT [facility] Outpatient Eval Start: 12/22/23 07:33 Freq: Status: Active Protocol: Document 12/22/23 09:46 ALEA (Rec: 12/22/23 10:54 ALEA [id number]) E-signed By Nathan Mclaughlin PT Physical Therapy Outpatient Evaluation Insurance Information Insurance Name Medicare B,Blue Cross/Blue Shield Medical Diagnosis Left shoulder rotator cuff repair Mini open with DCE and debridement. Treating Diagnosis left shoulder pain left shoulder weakness Decreased left shoulder ROM Referring MD Sarita Jane Subjective Subjective Pt. reports having progressive problems with his left shoulder without known injury leading to recent surgery for RCR on 12/10/23. Pt. is left handed but has good use of his right hand as well so he is doing ok at home with ADL's. He is retired and enjoys golfing. PMH includes diabetes and bilateral knee scopes. Good health overall. Pain Comments 5 Date of Last Physician Visit 12/18/23 Date of Surgery (If applicable) 12/10/23 Preferred Name Omid Precautions Treatment Precautions/Contraindications No AROM for 6 weeks Objective Other/Pertinent Objective Right shoulder AROM and strength are WNL Left shoulder PROM: flexion 100 deg; abduction 75 deg; ER to 5 deg CROM is WFL Palpation: mild hypertonus of left upper trap, deltoid and bicep. Assessment Assessment/Impression Objectively, pt. demonstrates; normal right shoulder AROM and strength; mid hypertonus/ guarding of left upper trap, deltoid and bicep muscles; forward head and rounded shoulders posture; normal left elbow and wrist/hand AROM; and expected loss of left shoulder PROM following RCR on 12/10/23. He would benefit from skilled therapy working on progressive left shoulder ROM and eventually strengthening of left shoulder /cuff. Primary Functional Limitations lifting, reaching, dressing, sleeping Plan of Care Rehabilitation Potential Excellent Physical Therapy Goals 1. Pt. will be indep. with HEP for self maintenance in 8 weeks. 2. Pt. will demonstrate improved shoulder ROM to WNL in 8 weeks. 3. Pt. will be able to raise arm overhead for ADL's without difficulty in 12 weeks. Coordination/Communication With Referral Source Treatment Plan/Direct Interventions Joint Mobilization,Manual Therapy,Neuromuscular Re-ed, Self-Care/Home Management, Therapeutic Exercises Frequency/Duration Weekly for 12 weeks. Patient Will Be Discharged From Therapy Independent w/HEP, Independently Progressing Evaluation Billing Complexity Low Certification Information Initial Certification Date 12/22/23 Ending Certification Date 03/21/24 Provider Signature Shows Agreement With POC & Medical Necessity Physician Signature & Date Requested Please Sign/Date Here Physician Comment/Change : Physician NPI Number #
== END 2024-05-16 09:27 | disposition home or self-care (01) ==
PROVIDERS: Visit Provider Physician Assistant
DX: Z98.890 Other specified postprocedural states (principal); M25.512 Pain in left shoulder; R53.1 Weakness; Z74.09 Other reduced mobility; Z51.89 Encounter for other specified aftercare
CPT/HCPCS: 97110; 97140; 97161